=== PATIENT | female | born 1980 | race Caucasian/White ===

== ENCOUNTER → 2017-10-30 10:27 | Outpatient (CLI) | payer OTHER, SELFPAY ==
[2017-10-30 12:32] LABS: Hematocrit 41.1 % (37-47); Hemoglobin 13.6 g/dl (12.0-15.0); Mean Corp Hgb Conc 33.1 g/gl (32-36); Mean Corpuscular Hgb 28.8 pg (27.0-32.0); Mean Corpuscular Volume 87.1 fL (81-99); Mean Platelet Vol. 10.2 fl (6.2-12.0); Platelet Count 248 K/mm3 (150-450); RBC Distribution Width CV 12.8 % (11.6-14.6); RBC Distribution Width SD 41.4 fl (35.1-43.9); Red Blood Count 4.72 M/mm3 (4.2-5.4)
[2017-10-30 12:33] LABS: Scan Indicated on CBC? Y/N NO
[2017-10-30 13:02] LABS: ALB/GLOB Ratio 0.9 RATIO (0.9-2.4); AST(SGOT) 20 U/L (15-37); Alanine Aminotransfer ALT/SGPT 24 U/L (13-56); Albumin, Serum 3.6 g/dL (3.2-5.0); Alkaline Phosphatase 67 U/L (45-117); Anion Gap 6 (5-15); BUN 13 mg/dL (7-18); BUN/Creat Ratio 19.3 RATIO (10-20); Calcium,Total 8.8 mg/dL (8.5-10.1); Chloride 106 mmol/L (98-107); Cholesterol 217 mg/dL (200); Creatinine, Serum 0.67 mg/dL (0.55-1.02); EST Glomerular Filtration Rate 106 mL/min (>60); Est Glom Filt Rate - Afr Amer 128 mL/min (>60); Ferritin 30 ng/mL (8-252); Globulin 3.8 g/dL (2.2-4.2); Glucose 85 mg/dL (74-106); High Density Lipoprotein 45 mg/dL; Iron 46 ug/dL (50-170); Potassium 4.3 mmol/L (3.5-5.1); Protein, Total 7.4 g/dL (6.4-8.2); Sodium Level 139 mmol/L (136-145); Thyroid Stim Hormone (TSH) 1.26 uIU/mL (0.358-3.74); Triglycerides 111 mg/dL; Very Low Density Lipoprotein 22 mg/dL (5-40)
[2017-10-31 09:15] LABS: Vitamin B12 377 pg/mL (211-911); Vitamin D,25 Hydroxy 15.9 ng/mL (19.95-100.01)
== END ==
PROVIDERS: Family Provider Family Medicine; PCP Family Medicine; Visit Provider Family Medicine
DX: R53.83 Other fatigue (principal); E78.5 Hyperlipidemia, unspecified
CPT/HCPCS: 36415; 80053; 80061; 82306; 82607; 82728; 83540; 84443; 85027

== ENCOUNTER 2018-06-26 15:50 | Emergency (ER) | payer OTHER, SELFPAY ==
[2018-06-26 15:51] VITALS: BP 129/81; PULSE 113; RESP 17; TEMP 36.7; O2SAT 98; BMI 37.3
--- NOTE | 2018-06-26 16:39 | ED.DCSUM_ITS ---
- ER Visit Summary Date of Service: 06/26/18 Chief Complaint: beesting to right thigh History of Present Illness: The patient is a 38 F who presents for pain and swelling to the right inner thigh 2 days after a yellow jacket sting. Patient was stung by a yellow jacket on the right inner thigh 2 days ago, and has had progressively worsening redness, swelling and pain to the area. Yesterday she was started on Keflex and Bactrim for concern for possible secondary infection without any improvement. Redness and pain has continued to spread. Patient tried Benadryl but states it makes her too sleepy and she has small children. She is also tried ibuprofen and ice. No shortness of breath, dizziness or lightheadedness, nausea or vomiting, fever or any other associated symptoms other than the swelling. She has no history of DVT. Physical Examination: Patient is afebrile and hemodynamically stable. Well-nourished well-developed sitting in bed in no distress. Lungs are clear to auscultation bilaterally. Examination of the lower extremity shows 2+ DP pulses, no edema or tenderness below the knees. Right medial thigh shows several skin markers marking the margins of the progressing erythema. Patient has a 20 cm ovoid area of erythema with central induration and a central punctate irma consistent with a bee sting site. Sensation motor function are intact all distal extremities. Test Results: [] Emergency Department Course and Treatment: Patient's examination is more consistent with a localized allergic reaction to the yellow jacket sting rather than a secondary cellulitis. Patient was started on a prednisone taper and was advised to use an [id number] nondrowsy antihistamine to help with symptoms. She is going to continue the antibiotics that she was prescribed yesterday. Patient was given return precautions. No signs of anaphylaxis and this does not appear consistent with DVT, as the progression on the medial thigh is appropriate for a localized reaction to a yellow jacket sting and there are no significant exam findings except in the oval region surrounding the sting site. Patient discharged home. Treatment Plan: [] Disposition: [] Impression: localized allergic reaction to bee sting, right thigh This note was generated with [employer] dictation software. It may contain incorrect words, spelling, and punctuation that were not noted in review of the chart prior to signing ED Disposition - Plan for ED Patient: Chief Complaint: Cellulitis Instructions: ED Bite Sting Insect Local Allergic React Prescriptions: Prednisone 10 mg PO UD #33 tab Referrals: Filipe Beal MD [Primary Care Provider] - 3-5 Days if not improving Additional Instructions: Continue taking the antibiotics in case there is secondary infection from the bee sting. Most likely this is a localized reaction to the bee sting, and thus you have been placed on prednisone for this. Take prednisone as directed. You may also want to try ibuprofen, ice, and an [id number] antihistamine such as Claritin or Zyrtec that will not make you drowsy, to help with itching and pain. If you have any worsening of your condition or any new concerning symptoms, please return immediately to the emergency department for another evaluation.
--- NOTE | 2018-06-26 16:39 | ED.VISSUMM ---
- ER Visit Summary Date of Service: 06/26/18 Chief Complaint: [] History of Present Illness: The patient is a 38 F [] Physical Examination: [] Test Results: [] Emergency Department Course and Treatment: [] Treatment Plan: [] Disposition: [] Impression: [] This note was generated with [employer] dictation software. It may contain incorrect words, spelling, and punctuation that were not noted in review of the chart prior to signing ED Disposition - Plan for ED Patient: Chief Complaint: Cellulitis Referrals: Filipe Beal MD [Primary Care Provider] -
[2018-06-26] MEDS: predniSONE 20 MG Tablet 40 MG PO (16:47)
[2018-06-26 17:09] VITALS: RESP 18
== END 2018-06-26 17:10 | disposition home or self-care (01) ==
PROVIDERS: Emergency Provider Emergency Medicine; Family Provider Family Medicine; PCP Family Medicine
DX: T63.441A Toxic effect of venom of bees, accidental (unintentional), initial encounter (principal)
CPT/HCPCS: 99283

== ENCOUNTER → 2019-03-27 14:16 | Outpatient (CLI) | payer OTHER, SELFPAY ==
[2019-03-27 15:49] LABS: ALB/GLOB Ratio 0.9 RATIO (0.9-2.4); AST(SGOT) 16 U/L (15-37); Alanine Aminotransfer ALT/SGPT 23 U/L (13-56); Albumin, Serum 3.5 g/dL (3.2-5.0); Alkaline Phosphatase 74 U/L (45-117); Anion Gap 6 (5-15); BUN 17 mg/dL (7-18); Calcium,Total 8.9 mg/dL (8.5-10.1); Chloride 108 mmol/L (98-107); Creatinine, Serum 0.71 mg/dL (0.55-1.02); EST Glomerular Filtration Rate 99 mL/min (>60); Est Glom Filt Rate - Afr Amer 120 mL/min (>60); Glucose 98 mg/dL (74-106); Potassium 3.8 mmol/L (3.5-5.1); Protein, Total 7.5 g/dL (6.4-8.2); Sodium Level 140 mmol/L (136-145)
== END ==
PROVIDERS: Nurse Practitioner Family; Family Provider Family Medicine; PCP Family Medicine; Visit Provider Family Medicine
DX: R10.11 Right upper quadrant pain (principal)
CPT/HCPCS: 36415; 80053

== ENCOUNTER → 2019-05-15 09:41 | Outpatient (CLI) | payer OTHER, SELFPAY ==
[2019-05-15 10:23] LABS: Absolute Lymphocyte Count 2.35 X10^3/uL (0.83-4.51); Basophil# 0.06 X10^3/uL; Basophil% 0.6 % (0-1); Eosinophil# 0.06 X10^3/uL; Eosinophils% 0.6 % (0-5); Hematocrit 44.1 % (37-47); Hemoglobin 14.1 g/dL (12.0-15.0); Lymphocyte # 2.35 X10^3/ul (4.0); Lymphocyte % 23.4 % (19-41); Mean Corpuscular Hgb 27.4 pg (27.0-32.0); Mean Corpuscular Volume 85.8 fL (81-99); Mean Platelet Vol. 9.5 fl (6.2-12.0); NRBC Flagged by Analyzer 0 % (0-5); Neutrophil # 7.02 X10^3/uL (2.7-7.7); Platelet Count 309 K/mm3 (150-450); RBC Distribution Width CV 12.3 % (11.6-14.6); RBC Distribution Width SD 38.6 fl (35.1-43.9); Red Blood Count 5.14 M/mm3 (4.2-5.4)
[2019-05-15 11:12] LABS: Cholesterol 213 mg/dL (200); Ferritin 52 ng/mL (8-252); High Density Lipoprotein 41 mg/dL; Iron 55 ug/dL (50-170); Iron Binding Capacity,Total 333 ug/dL (250-450); PERCENT IRON SATURATION 16.5 % (15.0-55.0); Thyroid Stim Hormone (TSH) 0.79 uIU/mL (0.358-3.74); Triglycerides 91 mg/dL; Very Low Density Lipoprotein 18 mg/dL (5-40)
[2019-05-16 12:59] LABS: Transferrin 248 mg/dL (200-370)
== END ==
PROVIDERS: Family Provider Family Medicine; PCP Family Medicine; Referring Provider Nurse Practitioner Family; Visit Provider Nurse Practitioner Family
DX: Z00.00 Encounter for general adult medical examination without abnormal findings (principal); R53.83 Other fatigue
CPT/HCPCS: 36415; 80061; 82728; 83540; 83550; 84443; 84466; 85025

== ENCOUNTER 2019-05-20 09:00 | Outpatient (RCR) | payer OTHER, SELFPAY ==
--- NOTE | 2019-05-20 09:10 | BH.SGPN.GN ---
Behaviors/Verbalizations/Mental Status: [] Eye contact is good. Motor activity is appropriate. Appearance is casual. Speech is Appropriate. Mood is anxious. Affect is congruent. Thoughts are linear and logical. No evidence of psychosis. Reviewed daily check in sheet and pt notes 2/5 for suicidal thoughts and 0/5 for intent. Therapist aware CSSR screener completed prior to group and low risk. Client Response/Progress/Benefit: [] Pt participated at times during group discussion. This was pt's first day in the program. Shared that she entered IOP as her mental health symptoms had been decompensation ing the past several weeks. Daily symptoms tracker indicates4/5 for anxiety, panic, and agitation. Also notes 3/5 for hopelessness. Reports daily depression, anxiety, and stress related to family which are impacting her functioning. Hx of decompensation in the past and she wants to get ahead of this before she gets worse. Hx of treatment at [facility] level of care with improvement. Limited progress as this was first day. Group welcomed her to the group and provided support and encouragment. Will continue in IOP to prevent decompensation, increase coping strategies, and improve daily functioning. Narrative Note: []
--- NOTE | 2019-05-20 10:21 | BH.SGPN.GN ---
Behaviors/Verbalizations/Mental Status: [Client alert and oriented, casually dressed and neatly groomed. Eye contact good. Motor activity appropriate. Speech within normal limits. Affect congruent, mood anxious, euthymic. Thoughts linear, logical, no signs of hallucinations or delusions.] Client Response/Progress/Benefit: [Pt receptive to session, provided input and remained an active listener throughout discussion on stress. Able to brainstorm with the group positive and negative aspects of stress on physical and mental health, discussing the impact stress can have on sleep and blood pressure. She participated in identifying current stressors impacting mental health. Pt's current stressors include: ?s work hours, medication management, physical health of herself and her family, parenting responsibilities, her dog?s health, continuing education requirements for her job, finances, and work requirements. Pt appeared to benefit from gaining awareness of own current stressors and learning about the impact stress has on overall wellbeing. Progress noted in improved ability to identify impact of stressors on maintaining her mental health and wellbeing and preventing burnout. Recommended continued IOP tx to improve emotional regulation and stress management skills, improve utilization of healthy coping and positive self-talk, as well as prevent decompensation.] Narrative Note: []
--- NOTE | 2019-05-20 11:17 | BH.SGPN.GN ---
Behaviors/Verbalizations/Mental Status: []Client alert and oriented, casually dressed and groomed. Eye contact good. Motor activity appropriate. Speech within normal limits. Affect congruent, mood anxious and dysthymic. Thoughts linear, logical, no signs of hallucinations or delusions. Client Response/Progress/Benefit: []Pt engaged in session as evidenced by pt listening attentively to others and providing input throughout session. Pt worked with the group to complete the challenge activity and with elicitation able to identify barriers encountered that may also impact managing stress in daily life. Pt engaged in discussion about the 4 A's of managing stress. Pt connected with others about the importance of being able to accept the stressors in life that she cannot change and focus on what is in her control. Pt stated she wants to work on avoiding unnecessary stressors by setting boundaries with others so she doesn't take on too many responsibilities. Benefited from increased awareness of the impact of stress on mental health and increasing repertoire of stress management strategies. Pt to continue in IOP to prevent decompensation, continue use of healthy coping skills and challenge distorted thoughts. Narrative Note: []
--- NOTE | 2019-05-20 11:27 | BH.COMM ---
Communication Note - Communication with Client Communication Note: Met with pt to complete admission paperwork. No significant changes since pre-admission screening. Completed CSSR screener and pt presents as low risk. Reports passive thoughts of or wish to be in past past however denies any active suicidal ideations, plan, intent, or hx of attempts.
--- NOTE | 2019-05-21 09:33 | BH.PSY.EVA_ITS ---
Initial Treatment Plan - Patient Information Visit Information: ADMISSION DATE: EXPECTED LOS: 4-6 weeks - Problems/Symptoms Problem #1:: Depression Symptom:: Sadness, crying, decreased concentration, low energy, fleeting though ts of Problem #2:: Anxiety Symptom:: rumination, intrusive thoughts, feeling jittery
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
--- NOTE | 2019-05-21 10:21 | BH.SGPN.GN ---
Behaviors/Verbalizations/Mental Status: [Client alert and oriented, neatly dressed and appropriately groomed. Eye contact good. Motor activity appropriate. Speech within normal limits. Affect congruent, mood anxious and dysthymic. Thoughts linear, logical, no signs of hallucinations or delusions. ] Client Response/Progress/Benefit: [Client responded well to session, actively listening and providing input throughout despite this being client?s second day in IOP program. Client reported connecting with topic of cognitive distortions and the potential impacts unmanaged negative automatic thoughts can have on managing mental health symptoms and daily functioning. She expressed that our thoughts can prevent us from seeing different ways to look at something. Client did well to work with the group on defining the various types of cognitive distortions and ways they have impacted mental health in the past. Client shared a personal example of mental filter, indicating ?this is like calling my Aunt and focusing on symptoms rather than my progress?. She reported connecting with distortions of personalization, minimizing and catastrophizing, as well as all or nothing thinking. Appeared to benefit from increasing awareness of cognitive distortions and how they can impact emotions and behaviors. She is making progress in her ability to more openly discuss within the group and connect materials to her own experiences. Client to continue IOP to decrease anxiety and depression, continue to increase insight and mental health coping skill repetiore, as well as prevent decompensation. ] Narrative Note: []
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
--- NOTE | 2019-05-23 09:00 | BH.SGPN.GN ---
Behaviors/Verbalizations/Mental Status: [] Eye contact is good. Motor activity is appropriate. Appearance is casual. Speech is Appropriate. Mood is euthymic. Affect is full. Thoughts are linear and logical. No evidence of psychosis. Reviewed daily check in sheet and no reports of suicidal ideations or intent. Client Response/Progress/Benefit: [] Pt was an active participant in group discussion. Emotion for today is calm. Daily symptom tracker indicates 3/5 for anxiety. Shared some mental health wins since last session. Went on walk with and she was happy that he was engaged with her and asking questions about treatment. Progress noted per pt report. Reports feeling better and more calm. Less depressed and more hopeful. Benefited from group support, encouragement, and feedback. Will continue in IOP to prevent decompensation, maintain gains, and increase coping strategies. Narrative Note: []
--- NOTE | 2019-05-23 10:16 | BH.SGPN.GN ---
Behaviors/Verbalizations/Mental Status: [Client alert and oriented, casually dressed and appropriate grooming. Eye contact good. Motor activity appropriate. Speech within normal limits. Affect congruent, mood euthymic. Thoughts linear, logical, no signs of hallucinations or delusions] Client Response/Progress/Benefit: [Pt participated in group discussion and worksheet activity. Pt connected with the group topic of Crisis and indicated that ?we can choose to dwell on crisis, or we can choose to change our way of thinking?. Pt worked together with the group to define a crisis and discuss examples of crisis situations. Pt described a house fire as an example of potential crisis. Connected with discussion on how small setbacks or annoyances can develop into a crisis if coping skills are unhealthy. She shared that warning signs are ?things that tell you ?stop, I need some help??. Group identified warning signs for crisis which included; increased sleep, irritability, decreased appetite, and suicidal thoughts. Pt completed the personal warning signs worksheet and identified her crisis warning signs include; increased or decreased sleep, jitteriness, and decreased concentration. Benefited from group by increasing awareness of crisis and personal warning signs. Progress noted as pt displaying increased ability to see how personal coping strategies may have impacted mental health crisis likelihood in past. Will continue IOP to promote change behaviors, increase healthy emotion regulation skills, and prevent decompensation.?] Narrative Note: []
--- NOTE | 2019-05-23 11:15 | BH.SGPN.GN ---
Behaviors/Verbalizations/Mental Status: []]Client alert and oriented, casually dressed and groomed. Eye contact good. Motor activity appropriate. Speech within normal limits. Affect congruent, mood euthymic. Thoughts linear, logical, no signs of hallucinations or delusions. Client Response/Progress/Benefit: []Client responded well to session as evidenced by client listening attentively to others and sharing when prompted. Client identified her warning signs for crisis and gained further awareness of his earliest warning signs. Client recognized that awareness of these warning signs can prevent further crisis and help client utilize healthy coping skills to break the cycle. Client created a crisis action plan to help client better manage earliest warning signs for crisis. Client?s plan included challenging negative thoughts, positive self-talk, setting goals, and reaching out to supports. Client appeared to benefit from creating a crisis action plan and increasing his self-awareness. Client to continue IOP level of care to decrease depression, increase use of healthy coping, and prevent decompensation. Narrative Note: []
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
--- NOTE | 2019-05-26 09:02 | BH.SGPN.GN ---
Behaviors/Verbalizations/Mental Status: [Eye contact is good. Motor activity is appropriate. Appearance is casual and grooming appropriate. Speech is WNL. Mood is dysthymic, anxious. Affect is congruent. Thoughts are linear and logical. No evidence of psychosis. Reviewed daily check in sheet, pt reports suicidal ideation at rate of 2/5 which is consistent with baseline, denies plan or intent. Scheduled for individual session following group and SI will be further assessed.] Client Response/Progress/Benefit: [Pt was an active participant in group discussion, providing input and feedback throughout. Emotion for today is ?kind of sad/down?. Reports that she believes this might be due to her son starting kindergarten and worrying about his ability to adjust, as well as a potential ADHD diagnosis. Pt did well to apply concepts of radical acceptance and self-coaching when discussing this stressor, indicating that ?I just trying to remind myself that this is out of my control and that it will be okay?. Pt identified current mental health wins. Wins include using avoidance in healthy ways to limit time spent on an ADHD support group online. Pt noted that avoidance has helped as this group can become overwhelming and too negative at times. Additional win is that pt reports being able to better identify when using cognitive distortions and catch herself and reframe during moments of catastrophizing or jumping to conclusions. Benefited from group support, encouragement, and feedback, as well as identifying small mental health wins. Pt making progress in ability to generalize treatment materials. Will continue in IOP to prevent decompensation, improve coping strategies for anxiety, and increase functioning.] Narrative Note: []
--- NOTE | 2019-05-26 10:14 | BH.SGPN.GN ---
Behaviors/Verbalizations/Mental Status: []Client alert and oriented. Casual in dress and appropriate grooming. Eye contact good. Motor activity appropriate. Speech within normal limits. Affect congruent, mood euthymic. Thoughts linear, logical, no signs of hallucinations or delusions. Client Response/Progress/Benefit: []Pt was an active participant in group discussion. Processed quote of the day with peers. Group discussed the MH benefits to having open and clear communication with support and providers. Pt stated relationships can improve if have effective communication because know what other person is feeling or needs. Group also discussed the barriers that tend to impact clear and open communication which include: depression, anxiety, fear, not trusting others, feeling like others don't understand you, shutting down, and unmanaged emotions. Pt reported there are times in which she has thought she communicated effectively, but the other person misinterprets her message. Pt was attentive during psycho-education on communication styles (aggressive, passive, passive-aggressive, and assertive). Also provided input on the pros and cons to each communication style. Pt to continue IOP level of care to continue use of health coping, identify and challenge distorted thoughts and prevent decompensation. Narrative Note: []
--- NOTE | 2019-05-26 11:16 | BH.SGPN.GN ---
Behaviors/Verbalizations/Mental Status: []Client alert and oriented, casually dressed and groomed. Eye contact good. Motor activity appropriate. Speech within normal limits. Affect congruent, mood euthymic. Thoughts linear, logical, no signs of hallucinations or delusions. Client Response/Progress/Benefit: []Client responded well to session, active participant. Engaged in ongoing psychoeducation on the different communication styles. Client able to gain insight into her communication style and client reported belief she is passive and passive aggressive. Client reported she was raised to put others first and she has always been a people pleaser. Client stated she becomes passive aggressive when she feels angry or too stressed.? Client reported these communication styles have negatively impacted her mental health and relationships. Client shared being passive and passive aggressive only reinforces her symptoms and ?things never get resolved.? Participated in group activity and discussion. Able to use the activity to reflect on ways to improve communication. Attentive during psychoeducation on D.E.A.R M.A.N and reported she wants to work on asserting her needs directly and clearly.. Appeared to benefit from increasing self-awareness and practicing in the moment coping skills. Will continue IOP to prevent decompensation and increase healthy coping skills.?
--- NOTE | 2019-05-26 14:03 | BH.MDN_ITS ---
Multi-Disciplinary Note - Note 30-min Individual Time Started:: 12:16 Date: 05/26/19 Purpose of session/treatment goals addressed:: Purpose of this session was to establish rapport with pt, gather additional information regarding pt current functioning, symptoms, and stressors impacting mental health. Other topics including development of treatment goals and progress since beginning the program. Eye Contact:: Good Motor Activity:: Appropriate Appearance:: Casual Speech:: Appropriate Mood:: Anxious, Dysthymic Affect:: Congruent Thoughts:: Linear, Logical, No evidence of hallucinations/delusions noted Staff Interventions:: Therapist asked open ended and furthering questions to gather additional information regarding pt's symptoms, current stressors, as well as events leading to IOP admission. Worked with client to explore treatment goals to address in PHP. Therapist used strengths perspective to build rapport and help pt identify personal positives and resilience factors. Therapist used empathic responses to provide emotional validation. Applied [place] techniques to explore coping strategies that have helped in the past and establish IOP treatment goals. Client Response:: Pt open to meeting with this therapist and engaged throughout session. She reports that her first week in IOP has gone well and she is beginning to see small improvements in her mood as a result. Reports that she has been actively working to apply the materials discussed and skills learned in group, specifically thought challenging, checking-in with herself, and avoiding unnecessary stressors. Pt went on to describe a decrease in overall intensity of anxiety as a result, noting that her symptoms are ?a little bit better than before?. Pt has a hx of Major depressive disorder with a previous hospitalization in 2012 following the of her son for SI/HI. Pt reports struggling with depression at the time and was unable to take Zoloft as prescribed due to nausea throughout her . Indicated that when she began having intrusive thoughts of locking her children and herself in the family car while it was running in the garage, she immediately sought help and was hospitalized for 4 days at [facility]. She noted that she has not had any HI since and has been taking Zoloft as prescribed up until most recently. Pt notes passive SI without plan or intent and that she has recently been struggling to remain consistent with medication due to forgetfulness. Pt discussed the events that led to her admission to IOP tx and indicated, ?I wish I had known more of my warning signs because I think I would have been able to better see this coming?. Shared that she could not identify anything specific that had triggered increases in anxiety and racing thoughts. However, indicated her sx had become more severe after returning from vacation on 04/27/19. Denies any stressors during vacation. Pt identified racing thoughts and fears about her son starting kindergarten and being assessed for ADHD. Additionally, pt endorses increased heart rate, hot flashes, and gastrointestinal issues when anxious, as well as crying spells, overwhelming worry, and hopelessness. Notes symptoms are most severe in the morning and evenings when she is alone, but that they reduce while tending to her children and daily routine. Pt?s works four 10 hour days and is often not home until late in the evening which can be a stressor. She discussed some treatment plan goals which include learning about thought challenging and learning techniques to better manage racing thoughts, as well as increasing her awareness of coping skills and warning signs to decompensation. Risks/Concerns:: Pt scores for SI on daily symptom tracker were rated as 2/5. This is consistent with pt baseline and she denies any active SI, plan, or intent at time of session. Pt reports becoming fearful when have thoughts of as she does not want to and reports that her children are major motivations to live. Denies any plan or intent. Future oriented and reports plans to spend time with her children and read tonight. Progress Toward Goals/Plan:: Limited progress noted as pt first week in IOP program. She reports decreased intensity, frequency, and severity of racing thoughts causing anxiety. Pt attributes this to increased awareness of cognitive distortions and being able to remind herself that ?thoughts are thoughts, not facts?. Denies SI/HI. Pt reports willingness to begin a thought log as homework to identify any patterns. Additionally willing to begin challenging herself to do one ?self-care? activity daily. Plan is to remain in IOP level of care to improve anxiety management, increase insight and understanding of personal mental health sx, as well as stabilize mood. Time Stopped:: 12:56
--- NOTE | 2019-05-26 15:51 | BH.MTP ---
Master Treatment Plan - Patient Information Program Physician:: Dr. Jennifer Christy Primary Therapist:: CAROLINE You - Psychiatric Diagnoses Psychiatric Diagnoses:: Major depressive disorder recurrent severe without psychosis F33.2, generalized anxiety disorder Diagnosis Code(s):: F33.2 - Estimated LOS Estimated LOS (in weeks):: 6 Problem/Goal #1 - Problem/Goal #1 Stated Goal:: Client will decrease depressive symptoms, isolation, and passive suicidal ideations due to Major Depressive Disorder. Description of Barriers: Pt reports her works in [place] which often leaves her as the primary care provider for their 2 children. Pt reports feeling obligated to get her children involved in as many activities as possible which places additional responsibility on her, is time consuming, and further exacerbates her mental health symptoms of anxiety. Additionally, client reports not having time to reach out to support or feeling her supports are too busy, reports isolative behaviors, and low self-esteem. Reports feeling guilty about needing to ask for help. Functional Impact: Pt is a 38-year-old female with a history of depression and anxiety. Pt reports worsening symptoms in the 3-4 weeks prior to [facility] admission. Pt reports symptoms increased after returning from a vacation with her family on April 27, 2019. At time of admission to [facility], pt endorsing increased depression, worthlessness, hopelessness, crying spells, lack of motivations, anhedonia, low energy, fatigue, decreased appetite, poor concentration, forgetfulness, and passive thoughts of . Pt additionally reports having fleeting suicidal ideation without plan or intent. Denies active SI, plan, and intent. Pt additionally reports intrusive thoughts, rumination, and daily panic attacks. Panic is controllable if pt calls a support person. Pt?s works in [place] and is gone a majority of the day, which leaves pt as primary caregiver for their 2 children. At admission, pt?s symptoms were continuing to interfere with her social, occupational, and familial functioning. Goal Relevant Strengths/Supports: Client presents as a kind, empathic, and motivated to improve her mental health. Client reports being close with her family and uses them as supports for managing sx of anxiety. Client is currently not working during the week which is helping client focus more on her mental health. - Objectives Objective #1 Stated Objective: Client will learn and utilize 2-3 healthy coping strategies to manage depressive symptoms. Interventions: Therapist will assist client in learning internal coping strategies to manage depressive symptoms, along with helping client identify triggers. Discharge Criteria: Client will have achieved this goal when can verbalize and has practiced at least 2 healthy coping strategies. Target Date: 07/01/19 Review Date: 06/17/19 Objective #2 Stated Objective: Client will identify 2-3 depressive thinking patterns and be able to challenge and replace negative thoughts. Interventions: Therapist will assist client in identifying depressive thinking patterns and provide client with resources to help teach client strategies in defeating negative thoughts. Discharge Criteria: Client will have met this objective when can identify at least two depressive thinking patterns and be able to defeat depressive and suicidal thoughts. Problem/Goal #2 - Problem/Goal #2 Stated Goal:: Client will decrease ruminating thoughts which cause anxiety. Description of Barriers: Pt reports her works in [place] which often leaves her as the primary care provider for their 2 children. Pt reports feeling obligated to get her children involved in as many activities as possible which places additional responsibility on her, is time consuming, and further exacerbates her mental health symptoms of anxiety. Additionally, client reports not having time to reach out to support or feeling her supports are too busy, reports isolative behaviors, and low self-esteem. Reports feeling guilty about needing to ask for help. Functional Impact: Pt is a 38-year-old female with a history of depression and anxiety. Pt reports worsening symptoms in the 3-4 weeks prior to [facility] admission. Pt reports symptoms increased after returning from a vacation with her family on April 27, 2019. At time of admission to [facility], pt endorsing increased depression, worthlessness, hopelessness, crying spells, lack of motivations, anhedonia, low energy, fatigue, decreased appetite, poor concentration, forgetfulness, and passive thoughts of . Pt additionally reports having fleeting suicidal ideation without plan or intent. Denies active SI, plan, and intent. Pt additionally reports intrusive thoughts, rumination, and daily panic attacks. Panic is controllable if pt calls a support person. Pt?s works in [place] and is gone a majority of the day, which leaves pt as primary caregiver for their 2 children. At admission, pt?s symptoms were continuing to interfere with her social, occupational, and familial functioning. Goal Relevant Strengths/Supports: Client presents as a kind, empathic, and motivated to improve her mental health. Client reports being close with her family and uses them as supports for managing sx of anxiety. Client is currently not working during the week which is helping client focus more on her mental health. - Objectives Objective #2 Stated Objective: Client will identify 2-3 triggers and 2-3 new ways to navigate stressful situations rather than becoming irrational and losing temper. Interventions: Therapist will use motivational interviewing, and help client make changes in life to encourage more regulated and rational behavior, ways to manage emotions in stressful situations, and feel more confident in self. Discharge Criteria: Client will have met this goal when he is able to describe less than 2 irrational reactions in a week, and at least 2 new ways to handle these stressful situations. Target Date: 07/01/19 Review Date: 06/17/19 Objective #1 Stated Objective: Client will identify 2-3 anxiety triggers and 2 coping skills to use when feeling anxious. Interventions: Therapist will encourage client to use self-awareness strategies and assist client in developing coping strategies to manage ruminating thoughts. Discharge Criteria: Client will have met this goal when can identify at least 2 triggers and 2 ways to cope with anxieties. Target Date: 07/01/19 Review Date: 06/17/19
--- NOTE | 2019-05-28 09:02 | BH.SGPN.GN ---
Behaviors/Verbalizations/Mental Status: []Client alert and oriented, neatly dressed and groomed. Eye contact good. Motor activity appropriate. Speech within normal limits. Affect congruent, mood euthymic. Thoughts linear, logical, no signs of hallucinations or delusions. Reviewed client?s symptom tracker, no risk for suicidal ideation, plan, or intent as of 05/28/19 as client's scores were at her baseline. Client Response/Progress/Benefit: [] Client responded well to session, providing supportive feedback to peers. Client reports feeling ?happy? today. Client reported this morning she used positive self-talk to manage her anxiety. Client stated she told herself ?I?m in control of my anxiety? this morning which helped her calm down. Client identified another mental health win today which was starting to feel like doing things again. Client stated she plans to go grocery shopping today which is something she has not done for a while. Client reported her stressor today is her mother is putting some pressure on client to change her plans this weekend for client?s son?s birthday green party. Client recognized she can practice being assertive with her mother and setting boundaries. Appeared to benefit from reflecting on generalization of healthy coping. Progress noted in client?s ability to cope with anxiety this morning. Will continue IOP tx to reduce intensity and duration of symptoms to improve daily functioning.?
--- NOTE | 2019-05-28 10:07 | BH.SGPN.GN ---
Behaviors/Verbalizations/Mental Status: [Client alert and oriented, casually dressed and appropriately groomed. Eye contact good. Motor activity appropriate. Speech is WNL. Affect congruent, mood dysthymic. Thoughts linear, logical, no signs of hallucinations or delusions. ] Client Response/Progress/Benefit: [Client responded well to session, actively engaged throughout discussion. She appeared to connect with the topic of personal pitfalls and how they can prevent mental health progress. Client shared ?sometimes we?re on the wrong path and don?t realize we have to get on the right path until after a downward spiral?. Client connected with examples of a personal pitfalls identified by group and discussed the first thing to do to combat pitfalls is self-awareness. Client participated in the group activity and did well to challenge herself not to give up despite several setbacks experienced by the group. Client provided encouraging statements and did well to work with the group to brainstorm new approaches to setbacks as they encountered them. Progress noted in increased ability to apply in the moment self-regulation skills and use assertive communication. Client appeared to benefit from increasing self-awareness and applying in the moment coping. Client to continue IOP to prevent decompensation, continue to promote healthy change behaviors, decrease depression, as well as increase stress management skills.] Narrative Note: []
--- NOTE | 2019-05-28 11:15 | BH.SGPN.GN ---
Behaviors/Verbalizations/Mental Status: []Client alert and oriented, casually dressed and groomed. Eye contact good. Motor activity appropriate. Speech within normal limits. Affect congruent, mood euthymic and agitated at times. Thoughts linear, logical, no signs of hallucinations or delusions. Client Response/Progress/Benefit: []Pt receptive of session, engaged throughout AEB pt providing positive input to group discussion. Pt completed a worksheet where she identified personal pitfalls impacting mental health progress. Identified pitfalls as: not saying no, taking on too many responsibilities, increased anger which leads to yelling at others and guilt. Pt identified she wants to focus on the pitfall of taking on too many responsibilities. Pt stated she will work on preventing this pitfall by giving herself time before saying yes to others. Pt reported this will help because it gives her time to look at her schedule instead of always saying yes to everyone. Benefited from identifying personal pitfalls and strategies to overcome these pitfalls. Pt has made progress in IOP with increasing self-awareness and making daily efforts to apply skills outside treatment environment. Recommended continue tx to promote change behaviors, increase use of healthy coping skills, decrease depression, and prevent decompensation. Narrative Note: []
--- NOTE | 2019-05-30 09:06 | BH.SGPN.GN ---
Behaviors/Verbalizations/Mental Status: [Client alert and oriented, casual and neat appearance. Eye contact good. Motor activity appropriate. Speech within normal limits. Affect congruent, mood euthymic, fatigued. Thoughts linear, logical, no signs of hallucinations or delusions. Reviewed client?s symptom tracker, no risk for suicidal ideation, plan, or intent as of 05/30/19.] Client Response/Progress/Benefit: [Client responded well to session, providing supportive statements to peers and receptive of feedback. Client reports feeling ?tired? today as she had worked a 12 hour shift yesterday. Client shared ?it was stressful and busy the whole time?, indicating that this has left her feeling drained. Client identified her mental health wins today which included making it through work positively, noting ?I told myself ?take it one step at a time??. Additionally, reports using skills of deep breathing, taking a step back to calm herself, and asking her boss for help. Client stated her stressor today is that she was up late helping her daughter with spelling homework which limited the amount of sleep she was able to get. Client appeared to benefit from reflecting on her generalization of coping skills to manage occupational stressors and decrease mental health symptoms. Progress noted as client reports improved ability to advocate for herself and use of coping skills. Will continue IOP tx to promote gains and reduce the intensity of symptoms.?] Narrative Note: []
--- NOTE | 2019-05-30 10:10 | BH.SGPN.GN ---
Behaviors/Verbalizations/Mental Status: []Client alert and oriented, neatly dressed and groomed. Eye contact good. Motor activity appropriate. Speech within normal limits. Affect congruent, mood euthymic, anxious. Thoughts linear, logical, no signs of hallucinations or delusions. Client Response/Progress/Benefit: []Client responded well to session, actively contributing to discussion. Client appeared to connect with the topic of fear of failure. Client reported she has viewed setbacks in life as all or nothing before, which caused client to shut down. Client reported failure is about perception and unrealistic expectations of oneself or of success can ?set us for failure.? Client shared it is possible to view failures as opportunities for growth. Group identified the impacts of fear of failure on mental health which included: learned helplessness, not trying, depending too much on others, avoidance, self-sabotage, and increased mental health symptoms. Client reported fear of failure can keep people from positive opportunities and improved mental health. Client seemed to benefit from increased awareness of how fear of failure can impact mental health. Client to continue IOP level of care to promote application of coping skills and further reduce intensity of symptoms.
--- NOTE | 2019-05-30 11:15 | BH.SGPN.GN ---
Behaviors/Verbalizations/Mental Status: []Client alert and oriented, casually dressed and groomed. Eye contact good. Motor activity appropriate. Speech within normal limits. Affect congruent, mood euthymic. Thoughts linear, logical, no signs of hallucinations or delusions. Client Response/Progress/Benefit: []Client engaged in session as evidenced by pt providing input throughout discussion and listening attentively to others. Client completed fear of failure worksheet and shared with group. Client shared fear of failure is keeping client from applying skills learned in mental health treatment. Client identified barriers to overcoming fear of failure which include: worry will be too happy that won't be able to maintain progress; not using coping skills; what if thinking; difficulty taking breaks and resting. Client identified things that she can do to overcome fear of failure such as: prioritizing me time; consistently attend counseling appointments; reframe negative thoughts; remind self she has been able to overcome difficult things previously; tell herself recovery takes time; take medications everyday. Benefited from identifying the impact that fear of failure has had on her life and developing strategies to overcome fear of failure. Will continue IOP to prevent decompensation, identify and challenge distorted thoughts and improve coping skills. Narrative Note: []
--- NOTE | 2019-06-03 09:10 | BH.SGPN.GN ---
Behaviors/Verbalizations/Mental Status: [] Eye contact is good. Motor activity is appropriate. Appearance is neat. Speech is Appropriate. Mood is depressed. Affect is flat. Thoughts are linear and logical. No evidence of psychosis. Reviewed daily check in sheet and no reports of suicidal ideations or intent. Client Response/Progress/Benefit: [] Pt was an active participant in group discussion. Emotion for today is tired however content. States my son had a meltdown this morning and I managed it. Notes being more calm and better able to handle stressors. Reviewed several examples of increase mood management. Less anxious when is not around. Progress noted. Benefited from group support, encouragement, and feedback. Will continue in IOP to maintain gains, prevent decompensation, and stabilize emotions. Narrative Note: []
--- NOTE | 2019-06-03 10:10 | BH.SGPN.GN ---
Behaviors/Verbalizations/Mental Status: []Client alert and oriented, disheveled in appearance. Eye contact good. Motor activity appropriate. Speech within normal limits. Affect congruent, mood euthymic. Thoughts linear, logical, no signs of hallucinations or delusions. Client Response/Progress/Benefit: []Client active participant during group discussion AEB pt providing input throughout group session and listened attentively to others. Client reported if we don't communicate what we need from supports they won't know how to support us. Group identified benefits of social support as gaining a different perspective, provide validation, help recognize warning signs, provide additional insight, and help us see personal strengths. Client gave example of how her family members have helped her with reminding client of past positive choices she has made. Client was engaged during the group activity and showed increased engagement as shown by client communicating with peers and cooperating throughout. Client reported she recognizes the importance of having balance of having both internal and external supports. Appeared to benefit from gaining awareness of barriers that keep people from seeking social support. Client to continue IOP to continue use of healthy coping skills, identify and challenge negative thoughts, and prevent decompensation. Narrative Note: []
--- NOTE | 2019-06-03 11:13 | BH.SGPN.GN ---
Behaviors/Verbalizations/Mental Status: []Client alert and oriented, neatly dressed and groomed. Eye contact good. Motor activity appropriate. Speech within normal limits. Affect congruent, mood euthymic. Thoughts linear, logical, no signs of hallucinations or delusions. Client Response/Progress/Benefit: []Client responded well to session, positive contributions and receptive to feedback. Client helped the group discuss and identify different social supports as well as the benefits of different supports. The group identified examples of personal, self-help, professional, spiritual, and co-worker social supports. Group identified benefits of each type of social support. Client reported she wants to increase her self-help social support to gain more resources and peer support. Client identified barriers that could prevent client from improving this support such as: fear of the unknown, lack of time, and feeling overwhelmed. Client reported she plans to look up events on the [employer] flyer and call herself out when ?I start making excuses?. Client appeared to benefit from increasing understanding of different types of social support and identifying ways she can improve. Progress noted as shown by client?s generalizing of coping skills and report of reduced intensity of symptoms. Will continue IOP to promote gains and further improve mood stability.?
--- NOTE | 2019-06-04 09:10 | BH.SGPN.GN ---
Behaviors/Verbalizations/Mental Status: [] Eye contact is good. Motor activity is appropriate. Appearance is casual. Speech is Appropriate. Mood is euthymic. Affect is full. Thoughts are linear and logical. No evidence of psychosis. Reviewed daily check in sheet and no reports of suicidal ideations or intent. Client Response/Progress/Benefit: [] Pt was an active participant in group discussion. Emotion for today is peace. Shared that she feels her emotions are more manageable. She went over several examples in the past week in which she managed effectively. Notes in the past she would have ruminated, stressed out, and her MH would have decompensated during those events. Increased self-care which she believes will also positively impact her mental wellness. Processed with the group a recent decision which she has been struggling with. Group provided feedback, reassurance, and support which was beneficial for pt. Will continue in IOP to prevent decompensation, improve functioning, and increase coping skills. Narrative Note: []
--- NOTE | 2019-06-04 11:07 | PCM.BH.PN_ITS ---
Progress Note Progress Note: ] History of Present Illness/Interim History: [Patient is a 38-year-old female who is seen in follow-up at the [facility] behavioral health IOP program. I last saw the patient 2 weeks ago for treatment of depression and anxiety. Denise states that she has tolerated weaning the Zol oft from 200 mg slowly to 100 mg for the past week well. She has no symptoms of withdrawal or other. She also has tolerated starting the Lexapro 10 mg well. She has no complaints about taking this medication. She states that her mood is much better and she is much less anxious than before.] Her appetite has improved and she has not had any panic attacks for over a month now. Of interest the diarrhea that started when she increased her Zoloft dose has stopped since we decreased the Zoloft. She has no more diarrhea or loose stools. She denies having any thoughts about . She denies any fleeting suicidal ideation. No active suicidal ideation and no plan. She continues to have some stress with her children but she feels that she is learning skills here in the IOP program that enable her to handle her stress better. Current Psychiatric Medications: [] Zoloft 100 mg daily for the past week (weaning from 200 mg)., Lexapro 10 mg p.o. daily (for past 2 weeks)] Mental Status Examination: [] Patient is a 38-year-old female who is normal for stated age. She is casually dressed and groomed with good hygiene. She is cooperative during the interview and has no psychomotor agitation or retardation. Speech is normal rate and rhythm with no pressure. Mood is depressed but much less depressed than before. Affect is euthymic this morning during the interview. Thought process is goal-directed and organized. Thought content: No evidence of suicidal or homicidal ideation. No evidence of hallucinations or delusions. No thoughts of . Concentration is much improved. Judgment is intact. Insight is good. Impulsivity is low. Diagnoses: [] [place] I: [Major depressive disorder recurrent severe without psychosis, generalized anxiety disorder] [place] II: [Negative] [place] III: [] Plan: [] Patient will continue the IOP program as she hopefully will continue to benefit from the structure, education, group therapy, and individual therapy and hopefully this will prevent a worsening of her symptoms. She is able to state that she feels quite safe and if she ever does not feel safe she will contact the IOP program or go to the emergency room. We will continue weaning her off the Zoloft and continuing to take the Lexapro. The risks options possible complications and side effects of Zoloft and Lexapro were discussed with the patient and she understands and accepts these. If she has any difficulty during the weaning off the Zoloft she will let me know. She will decrease her Zoloft from 100 mg to 50 mg p.o. daily for 1 week and then she will stop the Zoloft. We will increase the Lexapro to 20 mg p.o. daily. She will follow-up in 2 weeks to see me here in the IOP.
--- NOTE | 2019-06-04 12:03 | BH.NOTE ---
BH: Inpatient Note - Notes Behavioral Health Inpatient Note: Per written order from Dr. Hernandez, the following prescription was called into [facility] pharmacy in [place], [place]: escitalopram 20mg PO daily #30, NO refills Mya Sandhu, MSN, RN
--- NOTE | 2019-06-05 08:56 | BH.MDN ---
Multi-Disciplinary Note - Note 45-min Individual Time Started:: 12:11 Date: 06/05/19 Purpose of session/treatment goals addressed:: Purpose of this session was to assess current symptoms, stressors, and progress in IOP. Another purpose was to introduce behavior activation and identify small goals in for three areas of self-care. Eye Contact:: Good Motor Activity:: Appropriate Appearance:: Casual Speech:: Appropriate Mood:: Euthymic Affect:: Full, Congruent Thoughts:: Linear, Logical, No evidence of hallucinations/delusions noted Staff Interventions:: Therapist asked open-ended and furthering questions to gather information regarding pt current sx, stressors, and treatment goal progress. Used empathic responses and commended pt progress in applying skills learned. Utilized MO techniques to elicit change behaviors and develop small behavior activation goals. Provided education on maintenance cycles and behavior activation. Client Response:: Pt reports that she feels she is making progress in her ability to manage symptoms of anxiety and depression, specifically in the workplace. Pt discussed ?I am happy with the path that I?m traveling on? and shared she has been practicing using positive self-talk, taking breaks at work to prevent feeling overwhelmed, and has been doing well ask for help when needed. Pt described noticing that by working on her mental health she has seen improvements in her children?s behaviors as well. She indicated an increased ability to calm her son when he is upset by taking a deep breath and speaking to him calmly rather than getting mad and yelling. Pt additionally working on her goal of being more physically active by walking in the park. Pt discussed that although she has seen improvements with her mental health, she is still struggling to set aside time for self-care. Often spends most of her time on activities for her children. Insight that not taking time for herself could lead to burnout and maintaining her mental health symptoms. Discussed importance of opposite action and reviewed behavior activation strategies to improve self-care. Pt identified three small goals in self-care areas of fun/relaxation, physical health, and emotional health. Shared she wants to spend at least 10 minutes each day on something she finds fun/relaxing and is going to create a a list of ideas when not knowing what to do. Additional goals of doing [facility] mental health ?check-in?s? and creating a weekly meal plan to improve overall physical health. Risks/Concerns:: No risks or concerns reported. Denies active SI, plan, or intent as of 06/05/19 Progress Toward Goals/Plan:: Progress noted per pt report. Indicates increased ability to manage stress at work. Decreased anxiety and depression, though reports ongoing difficulties prioritizing self-care which continues to impact her daily functioning in. 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 Pt is beginning to utilize skills, specifically self-talk and thought challenging. Will continue in IOP to prevent decompensation, promote use of supports, and increase strategies to manage emotions and create personal balance. Time Stopped:: 12:51
--- NOTE | 2019-06-05 11:13 | BH.SGPN.GN ---
Behaviors/Verbalizations/Mental Status: []Client alert and oriented, casual in appearance. Eye contact good. Motor activity appropriate. Speech within normal limits. Affect congruent, mood euthymic. Thoughts linear, logical, no signs of hallucinations or delusions. Client Response/Progress/Benefit: []Pt active participant AEB pt providing input during discussion, however pt did appear to listen attentively to peers. Pt appeared to connect with the different relaxation skills discussed. Pt completed worksheet identifying what relaxation skills currently use to manage anxiety and identified what skills she would be willing to try to help manage anxious symptoms. Pt identified she is willing to try the following relaxation skills: listen to nature sounds, spend more time in nature engaging senses, meditation, yoga, and progressive muscle relaxation. Pt seemed to benefit from increased awareness of healthy skills to manage anxious symptoms and identifying skills willing to practice outside treatment environment. Pt to continue IOP level of care to maintain gains, continue use of healthy coping skills, and prevent decompensation. Narrative Note: []
--- NOTE | 2019-06-09 09:10 | BH.SGPN.GN ---
Behaviors/Verbalizations/Mental Status: [] Eye contact is good. Motor activity is appropriate. Appearance is casual. Speech is Appropriate. Mood is anxious. Affect is congruent. Thoughts are linear and logical. No evidence of psychosis. Reviewed daily check in sheet and no reports of suicidal ideations or intent. Client Response/Progress/Benefit: [] Pt was an active participant in group discussion. Emotion for today is annoyed. Shared with group mild stressors with daughter over the weekend. Notes this weekend was positive. Spent time with support and is slowly increasing her self-care. She actually completed a list of several self-care possibilities to use when she has some free time. Progress noted. Benefited from group support, encouragement, and feedback. Will continue in IOP to maintain gains, prevent decompensation, and increase healthy coping. Narrative Note: []
--- NOTE | 2019-06-09 10:16 | BH.SGPN.GN ---
Behaviors/Verbalizations/Mental Status: []Client alert and oriented, casually dressed and groomed. Eye contact good. Motor activity appropriate. Speech within normal limits. Affect congruent, mood euthymic. Thoughts linear, logical, no signs of hallucinations or delusions. Client Response/Progress/Benefit: []Client was an active participant in group activity and provided positive input during discussion. Client connected with the group quote and shared ?you have to be proud of what you?ve already accomplished, don?t forget that.? Group worked together to define goals and identify the benefits of developing goals which included; moving forward in life, increasing self-esteem, gives purpose in life, sense of accomplishment, and increasing determination. Group also identified barriers to setting and accomplishing goals which include; fear of failure, wanting instant results, unrealistic expectations, distorted thoughts, lack of motivation, and apathy. Client reported she has struggled with all or nothing thinking about her goals before which has caused client to minimize progress. Attentive during education on developing SMART goals. Benefited from increase awareness of goal-setting methods. Will continue in IOP to promote gains and further reduce depression and anxiety symptoms.
--- NOTE | 2019-06-09 11:15 | BH.SGPN.GN ---
Behaviors/Verbalizations/Mental Status: []Client alert and oriented, casually dressed and neatly groomed. Eye contact good. Motor activity appropriate. Speech within normal limits. Affect congruent, mood euthymic. Thoughts linear, logical, no signs of hallucinations or delusions. Client Response/Progress/Benefit: []Pt attentive throughout, actively contributing thoughts to discussion.Taking notes throughout and nodding as fellow participants reflected on challenge activity. Engaged in creating own mental health SMART goal and seemed to benefit from developing ways to overcome potential barriers to reaching this goal. Pt identified goal is to recite two affirmations a day in the evening for one week. Pt reported this goal will benefit her by improving self-esteem and increasing self-confidence. Pt identified potential barriers to accomplishing goal to include: forgetting, excuses, and being lazy. Pt reported she will overcome identified barriers by completing goal same time everyday, self-talk, reminding self of benefits of completing goal, and identifying consequences of not completing the goal. Seemed to benefit from identifying a SMART goal and coming up with strategies to overcome potential barriers. Pt to continue IOP to continue use of healthy coping skills, identify and challenge distorted thoughts, and prevent decompensation. Narrative Note: []
--- NOTE | 2019-06-10 09:00 | BH.SGPN.GN ---
Behaviors/Verbalizations/Mental Status: []Client alert and oriented, neatly dressed and groomed. Eye contact good. Motor activity appropriate. Speech within normal limits. Affect full, mood euthymic. Thoughts linear, logical, no signs of hallucinations or delusions. Reviewed client?s symptom tracker, no risk for suicidal ideation, plan, or intent as of 06/10/19. Client Response/Progress/Benefit: []Client responded well to session, providing supportive feedback and emotional support. Client reports feeling ?sleepy? tired because she stayed up late last night. Client shared she does not feel bad about staying up late because she was practicing self-care. Client reported she has been prioritizing self-care more which has helped client find a better mental health balance. Client stated she also followed through with her goal from group yesterday and wrote out two positive affirmations. Client hung them on her wall, and she plans to do this with all her affirmations. Client?s affirmations focus on increasing self-esteem and confidence. Client reported her daughter saw client?s affirmations and client hope this will model positivity to her daughter. Client?s stressor this morning is that her children were running late for school. Client reported she handled the situation well with minimal anxiety. Appeared to benefit from reflecting on her generalization of coping skills. Will continue IOP tx to promote gains and further reduce intensity of symptoms.
--- NOTE | 2019-06-10 10:02 | BH.SGPN.GN ---
Behaviors/Verbalizations/Mental Status: [Eye contact is good. Motor activity is appropriate. Appearance is neat and casual. Speech is Appropriate. Mood is anxious, euthymic. Affect is congruent. Thoughts are linear and logical. No evidence of psychosis.] Client Response/Progress/Benefit: [Pt was an active participant in group activity and discussion. Attentive during psycho-education and willing to work with peers to define coping skills. Pt and the group discussed that coping skills included; skills to use to get us through difficult times, techniques to manage emotions, and reactions to difficult things//stressors in life. Group also worked together to identify how we learn our coping skills and pt indicated that ?learned behaviors?, habits, our environment, what has worked in the past, and supports contribute to commonly used means of coping. Group discussed that not all coping skills are healthy and identified common unhealthy coping skills. Pt indicated that in the past she has struggled with coping with her anxiety in unhealthy ways such as through; isolating, avoidance, reassurance-seeking, and becoming more irritable with others. She participated in challenge activity in which participants were tasked with applying healthy coping skills to remain calm and regulate themselves while working together to complete a difficult task. After the group related the activity to need for healthy coping skills in daily life and pt expressed that having a ?strong foundation is important to build upon?. Pt benefited from increased insight and education on healthy vs unhealthy coping and internal vs external coping skills. Recommended continued IOP tx to reduce anxiety, increase consistent skill application, and prevent decompensation.] Narrative Note: []
--- NOTE | 2019-06-10 11:11 | BH.SGPN.GN ---
Behaviors/Verbalizations/Mental Status: [Client alert and oriented, neatly dressed and groomed. Eye contact good. Motor activity appropriate. Speech within normal limits. Affect congruent, mood anxious, euthymic. Thoughts linear, logical, no signs of hallucinations or delusions. ] Client Response/Progress/Benefit: [Client responded well to session, engaged throughout and providing ideas during group brainstorming. Client appeared to connect with the activity from second group and helped the group identify benefits of having a strong foundation of internal and external coping skills. Client shared she came to IOP because her internal coping skills were not well developed, and she wanted to learn ways of better coping for herself. Client helped the group discuss the different categories of coping skills and provided examples. Client reported it is important to have a variety of coping skills so you have something else to fall back on if one skill doesn?t work or isn?t available. Client created a coping skills ?menu? for the five categories of coping skills. Client selected deep breathing, walking outside, positive self-talk, and using affirmational statements. Client appeared to benefit from increasing her repertoire of healthy coping skills. Progress noted in client?s improved mood and report of reduced intensity of anxiety symptoms. Client to continue IOP to promote gains and improve level of functioning.] Narrative Note: []
--- NOTE | 2019-06-12 09:07 | BH.SGPN.GN ---
Behaviors/Verbalizations/Mental Status: [Eye contact is good. Motor activity is appropriate. Appearance is neat, casual. Speech is Appropriate rate and tone. Mood is euthymic. Affect is congruent. Thoughts are linear and logical. No evidence of psychosis. Reviewed daily check in sheet and pt denies any active SI, plan, or intent. ] Client Response/Progress/Benefit: [Pt responded well to session, engaged throughout and open to processing with the group. Pt indicated current emotion as ?calm? and discussed that this is due to feeling accomplished in her ability to cope with being alone during the day without having a lot of racing or intrusive thoughts. Discussed that although down time is a stressor, she is glad to be finally taking the time to begin practicing her own self-care and learning to connect with her own needs. Pt identified this as a mental health ?win? and shared spending some increased time reading to relax as a result. Additional win as starting to more actively apply regulation skills outside treatment environment and is beginning to recognize improvement in her ability to prevent anxiety from escalating to point of crisis as a result. Pt appearing to benefit from support and structure of group environment. She continues to make progress in practicing internal means for coping and is recommended continued IOP tx to prevent decompensation, decrease anxiety, and promote ongoing application of healthy coping skills.] Narrative Note: []
--- NOTE | 2019-06-12 10:14 | BH.SGPN.GN ---
Behaviors/Verbalizations/Mental Status: []Client alert and oriented, neatly dressed and groomed. Eye contact good. Motor activity appropriate. Speech within normal limits. Affect full, mood euthymic. Thoughts linear, logical, no signs of hallucinations or delusions. Client Response/Progress/Benefit: []Client responded well to session, attentive and participating in small group discussion. Group identified the benefits to setting boundaries as well as the consequences of not setting healthy boundaries. Benefits included: improved mental wellness, improved self-worth, self-love, less stress, less resentment, and avoid being taken advantage of. Group discussed the consequences of not setting boundaries which included: worsening mental health, lack of progress, and staying stuck in unhelpful situations. Client attentive during discussion of the different types of boundaries and engaged in the self-assessment activity. Client reported she struggles with setting boundaries and saying no. Client reported she often afraid to disappoint others and she identified herself as a ?people pleaser.? Client able to recognize her own mental health suffers when she does not set boundaries. Client seemed to benefit from increased awareness how poor boundaries can negatively impact mental health. Client to continue IOP level of care to prevent decompensation of anxiety symptoms and improve daily functioning.
--- NOTE | 2019-06-12 16:10 | BH.MDN_ITS ---
Multi-Disciplinary Note - Note 30-min Individual Time Started:: 11:41 Date: 06/12/19 Purpose of session/treatment goals addressed:: Purpose of this session was to assess current symptoms, stressors, and progress in IOP. Another purpose was to identify ways to improve self-confidence and promote healthy boundary setting. Eye Contact:: Good Motor Activity:: Appropriate Appearance:: Neat, Casual Speech:: Appropriate Mood:: Euthymic, Anxious Affect:: Congruent Thoughts:: Linear, Logical, No evidence of hallucinations/delusions noted Staff Interventions:: Therapist asked open-ended and furthering questions to gather information regarding pt current sx, stressors, and treatment goal progress. Used empathic responses and supportive feedback to validate and normalize pt emotions and frustrations. Utilized KS techniques to elicit change behaviors. Provided education on healthy internal boundaries and aided pt in identifying strategies for improving her own boundaries. Client Response:: Pt receptive of session, actively engaged throughout. She did well to openly discuss areas of progress as well as ongoing areas she struggles with. Pt described actively working on homework from previous session which was to work on small self-care related goals. Noted working on her ?emotional health? related goal. Pt discussed spending time saying positive affirmations throughout the day and indicated noticing changes in her perspective of self as a result. Pt went on to describe improved self-confidence and ability to practice self-compassion on days she utilized affirmations. Went on to indicate not completing this goal each day throughout the week or consistently completing the other two goals of engaging in physical activity or spending at least 10 minutes on something she finds enjoyable daily. Pt did well to identify barriers preventing successful goal completion and identified that difficulties with time management continues to be her biggest barrier. Provided insight that she often takes on more responsibilities than she can manage on her own and has difficulties saying ?no? when asked to do something. Shared beliefs that this s due to guilt or fear that by saying ?no? to something for her kids they will end up missing out on important experiences. Pt open to discussing setting internal boundaries to improve ability to prioritize her own self-care needs and work on building confidence to establish healthier external boundaries. Worked with therapist to identify responsibilities pt could spend less time on or delegate to someone else in order to improve consistent application of self-care interventions. Agreeable to homework of continuing self-care goals established in prior session and establishing set times to complete self-care activities identified. Risks/Concerns:: No risks or concerns reported. Denies active SI, plan, or intent as of 06/12/19. Progress Toward Goals/Plan:: Some progress noted per pt report of improved self- confidence and progress in self-care goals. Indicates increased ability to apply positive affirmations, manage her emotions when interacting with her children during times they are experiencing their own behavioral problems, as well as increased physical activity. Although pt reports some progress towards goals identified in prior session, she continues to report difficulties prioritizing self-care which continues to impact her anxiety levels and ability to consistently challenge unrealistic expectations of self. Eceptive of discussion on setting healthy internal boundaries to improve time management and prior itizing her own mental health needs. Indicates plans to reduce current task load to allow for time to engage in daily self-care at least 10 minutes each day. Will continue in IOP to prevent decompensation, promote use of boundary setting skills, and increase strategies to manage emotions, and reduce anxiety. Time Stopped:: 12:06
== END 2019-06-16 23:59 ==
LOC: BHIOP 09:00
PROVIDERS: Family Provider Family Medicine; PCP Family Medicine; Referring Provider Psychiatry & Neurology Psychiatry; Visit Provider Psychiatry & Neurology Psychiatry
DX: F33.2 Major depressive disorder, recurrent severe without psychotic features (principal); F41.1 Generalized anxiety disorder; Z79.899 Other long term (current) drug therapy
CPT/HCPCS: H0035; 90832; 90834; 90853

== ENCOUNTER 2019-06-17 09:00 | Outpatient (RCR) | payer OTHER, SELFPAY ==
--- NOTE | 2019-06-17 15:42 | BH.MTP_ITS ---
Treatment Plan Review Date of Admission:: 05/20/19 Date of Treatment Plan Review:: 06/17/19 Admitting Diagnoses:: Major depressive disorder recurrent severe without psychosis F33.2, generalized anxiety disorder Current Diagnoses:: Major depressive disorder recurrent severe without psychosis F33.2, generalized anxiety disorder Patient's Response to Treatment:: Pt appears to be responding well to treatment, this is evidenced by consistent attendance, active participant in both group and individual sessions, and increased application of skills learned in her daily life outside of treatment environment. Pt presents as motivated to make positive changes in her life which is evidenced by setting healthy boundaries and taking on fewer responsibilities, as well as increasing her use of daily self-care time. Pt has begun to more openly discuss her mental health needs and familial stressors with her , she is increasing her willingness to reach out to other supports in her personal and occupational life, pt is additionally actively applying emotion regulation skills which she notes have aiding in reducing irritability. Pt has followed through with all assignments and small goals identified in session. She continues to maintain consistent attendance and active engagement in the IOP program both individually and in group sessions. Status of Current Problems and Symptoms: Pt continues to report progress in her ability to manage symptoms of depression and anxiety on a daily basis. She reports that her MH symptoms impact her daily functioning at a much lesser degree than prior to admission. Pt reports she feels more capable of managing her anxiety through application of positive self-talk, thought challenging, and calming skills. Pt is able to identify some of her warning signs for irritability, anxiety, and depression which has increased her ability to recognize when to apply a calming skills or thought challenging. Pt reports no longer taking on as many unnecessary responsibilities which in turn has aided in reducing overall anxiety and irritability. Pt continues to report periods of anxiety and irritability when her children are experiencing behavioral problems, or she begins thinking about her son?s ongoing difficulties in school. Despite continued struggles with consistently reminding herself to utilize thought challenging skills, she continues to make progress in this area. Pt completed the DSM-5 Cross Cutting Scales at admission and again today to further assess for tx progress. Per this scale pt had an 88.7% reduction in symptoms. Pt areas of reduction include: 87.5% reduction of depression, 82% reduction of anxiety, and 67% reduction of anger. Thoughts of hurting herself decreased from mild, several days of the week to none, not at all?. Pt reports increased confidence in her ability to regulate her emotions, however continues to struggle at times with agitation when overwhelmed and catastrophizing thoughts. Pt also reports increase in willingness to ask for help or say no to things that may add undue stress to her day. While tx progress has been noted pt continues to report some difficulties with ruminations, guilt about ?not doing enough? for her kids and others, as well as setting aside time for self-care. Pt progress has been discussed with clinical team and it is recommended that she continue in IOP to prevent decompensation, maintain gains, decrease isolation, continue to stabilize mood, and improve consistent skill application. Problem #1 Problem Name:: Depression Status of Goals:: Partially complete. Pt has made significant progress on this objective. Notes an 88% reduction in depression sx AEB DSM-5 Cross-cutting analysis QUESTIONAIRE. Obj 1- Complete; however would benefit from continued focus to maintain gains Obj 2- Pt is able to actively identify negative self- talk messages and is able to make significant progress in ability to replace these thoughts. Would benefit from continued focus in this area to improve consistency and maintain gains. Team Recommendations:: Client encouraged to continue working on this treatment goal to reinforce healthy coping skills and continue to further decrease symptoms of depression. Client and therapist currently working on thought challenging and practicing calming skills. Will continue IOP tx to maintain gains and continue to decrease depression related sx. Problem #2 Problem Name:: Anxiety Status of Goals:: Partially complete. Pt continues to make significant strides in reduction of anxiety sx. Notes a 82% reduction in anxiety scores on DSM 5- Cross-Cutting analysis QUESTIONAIRE. Obj1- Pt is able to identify a variety of skills to navigate stressful situations in healthy and effective ways, pt continues to struggle with consistent utilization of skills however when experiencing more than one stressor at once. Obj 2- Pt reports awareness of an xiety triggers and some warning signs however struggles with consist ability to independently apply coping skills. Pt still needs some work in this area. Team Recommendations:: Client encouraged to continue working on this treatment goal to reinforce healthy coping skills and continue to further decrease symptoms of anxiety. Client and therapist currently working on thought challenging and practicing calming skills. Will continue IOP tx to maintain gains and continue to decrease anxiety related sx.
--- NOTE | 2019-06-17 15:42 | BH.MDN_ITS ---
Multi-Disciplinary Note - Note 30-min Individual Time Started:: 10:46 Date: 06/17/19 Purpose of session/treatment goals addressed:: Purpose of this session was to review current symptoms, stressors, and progress towards tx goals. Another purpose was to identify areas for continued focus and small goals to continue to promote progress. Additional topics: Reviewed DSM cross-cutting scales, discussed effective communication for improving conflict resolution Eye Contact:: Good Motor Activity:: Appropriate Appearance:: Disheveled - pt dressed more casually and hair appearing dirty Speech:: Appropriate Mood:: Anxious, Dysthymic Affect:: Full Thoughts:: Linear, Logical, No evidence of hallucinations/delusions noted Staff Interventions:: Therapist asked open-ended and furthering questions to elicit information on pt current symptoms, stressors, and perceptions of treatment goal process. Applied strength?s-based approaches to promote self- efficacy, aid pt in identifying strengths, and continue to promote gains. Therapist utilized HI techniques to identify where pt has made gains, areas for continued growth, potential barriers, and small goals to continue application of change behaviors. Reviewed DSM cross-cutting scales with patient. Discussed strategies for managing anxiety and effective conflict resolution. Client Response:: Pt reports being in a more positive mood than this morning, but is continuing to struggle with anxiety related to her son?s behavior at school and potential ADHD diagnosis. Pt reports that she had received notice that his elementary school director had completed an observational assessment regarding his behaviors for her son?s bus system operator. Pt noted that this had been sealed so she is unsure of the recommendation made which has increased her anxiety. Pt reports improved ability to cope with intrusive thoughts regarding this and was able to allow herself to process her emotions and challenge distortions over the weekend which prevented pt from further ruminating on the results. Pt additionally noted that she reached out to her supports when feeling anxious which was helpful as well. Pt shared that despite experiencing anxiety about this and her son?s upcoming appointment to discuss the results of the assessment, pt has been able to continue to make progress. Pt indicates that practicing radical acceptance and reminding herself that ?this is not your fault and not in your control?, as well as identifying small components within her control has been helpful in continuing to reduce anxiety. Therapist and pt reviewed current DSM scores and discussed additional areas of progress. Pt shared being surprised by the drastic drop in overall scores as her scores at admission were a 62 and today?s DSM indicated scores at 7. Noted feeling she has made most progress with mood regulation, especially in the workplace. Continues to improve in her ability to calm herself prior to responding when her son is escalated. Additional improvement identified I area of self-care as pt shared she is taking at least five minutes a day to practice self-care by reading, coloring, or going for a walk. Pt identified wanting to focus on further strengthening boundaries as she continues to have difficulties in saying no when asked to take on additional responsibilities. Discussed creating a relapse prevention plan prior to IOP discharge. Risks/Concerns:: No risks or concerns noted. Pt denies active SI, plan, or intent as of this date, 06/17/19 Progress Toward Goals/Plan:: Progress noted per pt report of feeling her mental health sx of depression and anxiety have decreased, as well as increase reports of increased application of emotion regulation, anxiety management, and self- care skills. Pt completed DSM cross-cutting scales as this is week 4 of her IOP treatment. When compared to her DSM scores on admission pt showed a 88.7% decrease in symptoms. Pt showed a decrease in all categories including depression, irritability, intrusive thoughts, anxiety, and personal connection with others. Overall progress noted in areas of tx engagement and skill application. Pt continues to reports increased ability to apply healthy boundaries via saying no to additional responsibilities and setting aside time for personal self-care. Pt agreeable to plan for IOP discharge next Sunday following upcoming consultation of her son which is causing increased anxiety. Pt to continue IOP tx to maintain gains, prevent decompensation, and complete aftercare planning. Refer to treatment plan review for more information. Time Stopped:: 11:12
--- NOTE | 2019-06-18 09:04 | BH.SGPN.GN ---
Behaviors/Verbalizations/Mental Status: []Client alert and oriented, casual dress, hygiene tended to. Eye contact good. Motor activity appropriate. Speech within normal limits. Affect congruent, mood frustrated and positive. Thoughts linear, logical, no signs of hallucinations or delusions. Reviewed client?s symptom tracker, no signs of suicidal ideation, plan, or intent as of today. Client Response/Progress/Benefit: []Pt was an active participant in group discussion, providing input and openly processing with the group. Emotion for today is frustrated. Pt indicated that she has been struggling with morning routine with her children that doesn?t result in her yelling or being late. Pt stated she tried the technique of laying her son?s shoes out the night before, but still had problems with leaving on time this morning. Pt stated despite having a rough time leaving the house this morning she notes progress with taking time to reflect on what she can do differently tomorrow, instead of ruminating on what didn?t go well. Pt reported she recognizes in the morning she tends to add additional unnecessary tasks to her morning routine, which results in her being late and rushed. Pt stated tomorrow she is going to focus on only completing the necessary tasks. Additional positive as taking 10-15 minutes at the end of the day yesterday to have a conversation with her instead of just going to bed. Progress noted with pt?s increased positive thinking and improved ability to challenge distorted and negative thought patterns. Continued IOP tx recommended to maintain gains, prevent decompensation, and continue to improve healthy thought patterns. Narrative Note: []
--- NOTE | 2019-06-18 10:09 | BH.SGPN.GN ---
Behaviors/Verbalizations/Mental Status: [Client alert and oriented, casually and neatly dressed and groomed. Eye contact good. Motor activity appropriate. Speech within normal limits. Affect congruent, mood anxious, euthymic. Thoughts linear, logical, no signs of hallucinations or delusions.] Client Response/Progress/Benefit: [Client was an active participant throughout, AEB providing input, note-taking, and listening attentively to peers. The group discussed the quote and how the emotion anger is not good or bad, but one can respond to anger in healthy or harmful ways. Client worked with the group to define anger and its causes, as well as the internal and external impacts of anger. Group identified potential consequences of unhealthy management of anger to include: increased stress, loss of relationships, guilt, more problems being created, anxiety and worsening mental health symptoms. Client identified underlying factors of her anger which included: anxiety, fear of something happening to her children, guilt, feeling overwhelmed/stressed, and loneliness. Client stated becoming short, shutting down, and crying are common responses she has when feeling angry. Benefited from group by increasing awareness of the negative impacts of unmanaged anger and underlying factors that contribute to her personal anger. Progress noted as client reports increased self-awareness and ability to cope with stress without becoming irritable. Will continue IOP tx to further reduce negative self-talk, increase anxiety management, and promote mood stability.] Narrative Note: []
--- NOTE | 2019-06-18 11:15 | BH.SGPN.GN ---
Behaviors/Verbalizations/Mental Status: []Client alert and oriented, neatly dressed and groomed. Eye contact good. Motor activity appropriate. Speech within normal limits. Affect congruent, mood euthymic. Thoughts linear, logical, no signs of hallucinations or delusions Client Response/Progress/Benefit: []Client responded well to session, positive contributions and attentive throughout. Client participated in group activity and able to connect how managing anger takes patience, calming skills, and acceptance. Group identified the benefits of effectively managing anger which included; advocating for oneself, reducing consequences, reducing mental health symptoms, and expressing one?s needs. Client reported one?s response to anger can be hard to change, but it is possible to cope in healthier ways. Client shared for her, managing anger can be a motivator for change. Client helped the group identify coping skills to more effectively manage anger which included; deep breathing, self-compassion, taking a step back, DDD, challenging perspective, and using S.T.O.P. Client appeared to benefit from gaining coping skills to more effectively manage anger. Will continue IOP level of care to promote gains and further improve self-care strategies.
--- NOTE | 2019-06-19 09:05 | BH.SGPN.GN ---
Behaviors/Verbalizations/Mental Status: [] Eye contact is good. Motor activity is appropriate. Appearance is casual. Speech is Appropriate. Mood is euthymic. Affect is full. Thoughts are linear and logical. No evidence of psychosis. Reviewed daily check in sheet and no reports of suicidal ideations or intent. Client Response/Progress/Benefit: [] Pt was an active participant in group discussion. Emotion for today is comfortable. Shared with the group that she reached out to a friend for lunch. Notes this as mental health win as she does not typically reach out for these types of things and is more passive in relationships. Also discussed several situations in which she was more assertive and completed tasks she felt was important rather than ruminating on how it would impact others or people pleasing. Has meeting with her therapist after group stating that she has not seen her since she started IOP noting back when I was a hot mess. Progress noted per pt report. Will continue with IOP to maintain gains and prevent decompensation. Narrative Note: []
--- NOTE | 2019-06-24 09:01 | BH.SGPN.GN ---
Behaviors/Verbalizations/Mental Status: []Client alert and oriented, casual dress, hygiene tended to. Eye contact good. Motor activity appropriate. Speech within normal limits. Affect congruent, mood euthymic and positive. Thoughts linear, logical, no signs of hallucinations or delusions. Reviewed client?s symptom tracker, no signs of suicidal ideation, plan, or intent as of today. Client Response/Progress/Benefit: []Pt was an active participant in group discussion, providing input and openly processing with the group. Emotion for today is giddy. Pt reported current stressor is meeting with son's senior it specialist today to review the results of ADHD questionnaires various people in her son's life had to complete. Pt stated she is anxious because doesn't want something to be wrong with her son, but at the same time is looking forward to having answers as to what's going on with him. Pt noted progress as being able to manage her anxiety more effectively in regards to worrying about the meeting with son's senior it specialist. Pt stated she has used positive self-talk and reminding herself to focus on what is in her control as strategies to help her cope. Additional positive as being able to go to her daughter's entire softball game and I actually got to enjoy the game and be present. Pt stated about 6 weeks ago when she went to her daughter's first softball game she couldn't focus because was too anxious about what other's were thinking about her. Pt reported she can see significant progress with being able to manage her anxiety. Continued IOP tx recommended to maintain gains, prevent decompensation, and continue to utilize healthy coping skills. Narrative Note: []
--- NOTE | 2019-06-24 10:13 | BH.SGPN.GN ---
Behaviors/Verbalizations/Mental Status: []Client alert and oriented, neatly dressed and groomed. Eye contact good. Motor activity appropriate. Speech within normal limits. Affect congruent, mood euthymic. Thoughts linear, logical, no signs of hallucinations or delusions. Client Response/Progress/Benefit: []client was an active participant in group discussion and activity. Contributed to discussion on quote of the day as she shared growth can mean many different things. Client stated ?we sometimes just trust growth will happen, but it takes effort.? Client both positive and negative life forces can cause growth. Group worked together to come up with common negative forces in life which can hold them back from growth. These included; toxic relationships, negative thoughts, cognitive distortions, lack of self-care, and trauma. Group then worked together to identify common positive forces which help us grow. These included; healthy coping skills, positive support, self-care, patience, realistic and positive thinking, and self-awareness. Client was attentive during psychoeducation on the importance of utilizing many forces to help one grow. Benefited from group with increased insight and awareness on the impact of negative and positive forces on mental wellness.
--- NOTE | 2019-06-24 11:11 | BH.SGPN.GN ---
Behaviors/Verbalizations/Mental Status: [Client alert and oriented, casually and neatly dressed and groomed. Eye contact good. Motor activity appropriate. Speech within normal limits. Affect congruent, mood anxious and euthymic. Thoughts linear, logical, no signs of hallucinations or delusions.] Client Response/Progress/Benefit: [Client willing to participate in activity and provided supportive feedback and suggestions throughout. She engaged in discussion connecting activity to review of how positive and negative forces impact life and mental wellness and the importance of balancing forces in life. Client identified personal positive forces that aid in progressing toward mental health goals include: reaching out to supports, challenging distorted and anxious thoughts, her family, having a supportive job, willingness to keep trying, and therapy. Client indicated personal negative forces include: difficulties managing mental health sx, fear of her children?s health being impacted, difficulties in communicating, loneliness, and overscheduling herself. Progress noted in client ability to identify ways in which internal forces can impact personal growth. Client seemed to benefit from increased awareness of personal positive and negative forces in life and impact they have on mental health and wellness. Client to continue IOP level of care to continue to decrease anxiety and catastrophizing, improve ability to regulate emotions, and prevent decompensation.] Narrative Note: []
--- NOTE | 2019-06-25 09:05 | BH.SGPN.GN ---
Behaviors/Verbalizations/Mental Status: [Client alert and oriented, neat and casual dress, hygiene tended to. Eye contact good. Motor activity appropriate. Speech within normal limits. Affect congruent, mood dysthymic. Thoughts linear, logical, no signs of hallucinations or delusions. Reviewed client?s symptom tracker, no signs of suicidal ideation, plan, or intent as of today. ] Client Response/Progress/Benefit: [Pt was an active participant AEB engagement in group discussion and openly processing with the group. Emotion for today is satisfied but sad as pt indicated feeling relieved to know her son?s diagnosis of ADHD but a little sad that he has this additional stressor to live with. Pt did well to identify areas within her control regarding how she responds to the newfound information. Indicated mental health win to include not becoming overwhelmed or panicking, but instead created a list of questions with her to ask the doctor and better prepare themselves. Pt notes additional win as spending some time on self-care via going for a walk after the doctor?s appointment. Progress identified in pt self-reported improvements in applying healthy coping and anxiety management skills outside of tx environment. Continued IOP tx recommended to continue to promote application of healthy coping skills, decrease anxiety, and prevent decompensation.?] Narrative Note: []
--- NOTE | 2019-06-25 10:24 | BH.NOTE ---
BH: Inpatient Note - Notes Behavioral Health Inpatient Note: Dr. Hernandez requested that this INKJET OPERATOR meet with client to assess progress and address need for medication refills. Client notes that she continues to improve in her mood and is having much fewer mental health symptoms. Client denies any adverse effects from the Lexapro, and has completely weaned off the Zoloft. Per verbal order from Dr. Hernandez, the following prescription was called into [facility]: Lexapro 20mg PO daily, #30, NO refills Client will DC from IOP this week and will follow-up with her outpatient counselor and PCP for medication management. Mya Sandhu, MSN, RN
--- NOTE | 2019-06-25 11:20 | BH.SGPN.GN ---
Behaviors/Verbalizations/Mental Status: []Client alert and oriented, casually dressed and groomed. Eye contact good. Motor activity appropriate. Speech within normal limits. Affect congruent. Mood euthymic. Thoughts linear, logical, no signs of hallucinations or delusions. Client Response/Progress/Benefit: []Client responded well to session, providing input during discussion and listening attentively to peers. Client engaged in the group activity as shown by client working cooperatively with others and providing ideas to group. When processing activity client stated she initially didn't think the group could do any better, but with encouragement from supports she was willing to keep trying. Worked with group to identify how the group utilized all of the resiliency factors to help them overcome a challenge that initially seemed impossible. Client reported she wants to work on the resiliency factor of accepting that change is a part of living. Client shared she often would view change as a negative thing, but wants to work on embracing change. Client seemed to benefit from identifying what resiliency factor she wants to improve to increase personal resilience. Client to continue IOP maintain gains, continue to identify and challenge negative thoughts and prevent decompensation. Narrative Note: []
--- NOTE | 2019-06-25 16:19 | BH.MDN_ITS ---
Multi-Disciplinary Note - Note 45-min Individual Time Started:: 10:43 Date: 06/25/19 Purpose of session/treatment goals addressed:: The purpose of this session was to review overall progress, process pt recent stressor, and discuss current sx management. Another goal was to create strategies for success that will continue to maintain gains, promote emotional regulation, application of of healthy coping skills, and address identified barriers. Eye Contact:: Good Motor Activity:: Appropriate Appearance:: Casual Speech:: Appropriate Mood:: Anxious, Dysthymic Affect:: Congruent Thoughts:: Linear, Logical, No evidence of hallucinations/delusions noted Staff Interventions:: Therapist used open-ended questions to discuss pt recent stressors and utilized strengths-based approaches to commend pt ability to successfully manage stressors. Therapist provided encouragement and empathic responses as pt discussed experiencing mixed emotions regarding current stressor and upcoming IOP discharge. Pt and therapist reflected on her progress and created a concrete maintenance plan consisting of healthy coping skills, reminders, and positive messages to help client maintain progress. Therapist and pt reviewed aftercare plan. Client Response:: Client responded well to session, actively engaged throughout. She reporting feeling satisfied but a little sad about her son?s recent ADHD diagnosis. Went on to discuss feeling satisfied with how she responded to the official diagnosis and reflected that she was proud to know her continued efforts in advocating for her son is resulting in increased services and supports for him. Pt shared feeling sad that he is struggling with concentrating at school but more confident in her ability to help him receive after consulting with a professional about his needs. Pt additionally reports her has been more supportive in this area as well. Note feeling that her ability to cope with difficult information without catastrophizing is a sign she has made significant progress since beginning IOP tx and feels prepared to discharge from IOP tx this week. Therapist is in agreement with this given pt progress in anxiety management, self-care, and setting boundaries with herself to begin taking on fewer responsibilities. Remainder of session was spent reviewing warning signs for decompensation, discussing potential barriers to maintaining gains, and identifying strategies for success. Pt identified her strategies for success as: deep breathing using the figure eight technique, opposite action such as watching a comedy when feeling sad, spending time with her supports, exercising, and setting aside daily time for self-care. Pt expressed that reminding herself ?it?s okay to feel different emotions, you can?t stop the way you feel but you can learn how to cope with it?. Pt expressed appreciation for the [facility] program and clinical staff, she is additionally agreeable to setting up an aftercare appointment prior to discharge tomorrow. Risks/Concerns:: No risks or concerns at this time, pt denies suicidal ideation, intent, and plan as of 06/25/19. Progress Toward Goals/Plan:: Pt has made significant progress towards treatment goals as she reports reduced intensity and duration of anxiety, irritability, and depression impacting daily functioning. Pt reports increased confidence in communicating with supports and implementing healthy coping skills. Pt additionally reports making regular efforts to practice self-care daily and improve her ability to set healthy boundaries by not taking on more responsibilities than she can manage. Pt shared beliefs her ability to consistently take medications as prescribed has been a major contributor to her success as well. Pt to discharge from [facility] tomorrow, 06/26/19, and follow up with outpatient counseling to promote gains and maintain mood stability. Time Stopped:: 11:21
--- NOTE | 2019-06-26 09:10 | BH.SGPN.GN ---
Behaviors/Verbalizations/Mental Status: [] Eye contact is good. Motor activity is appropriate. Appearance is casual. Speech is Appropriate. Mood is euthymic. Affect is full. Thoughts are linear and logical. No evidence of psychosis. Reviewed daily check in sheet and no reports of suicidal ideations or intent. Client Response/Progress/Benefit: [] Pt was an active participant in group discussion. Shared that today is her last day in [facility] and that she is feeling proud, excited, and sad. Notes that she feels stabilized and is functioning much better than when she entered the program. Managing stressors at well more effectively. Less overwhelmed and anxiety about events. More active, more energy, and decreased hopelessness. Increased confidence in her ability to manage her anxiety and depression. Shared with peers that skills and groups which she believed were most beneficial including cognitive distortions. Progress noted per pt report. Will be discharged from [facility] today. Narrative Note: []
--- NOTE | 2019-06-26 09:32 | BH.AFTERPLAN ---
Aftercare Plan - Demographics Treatment End Date:: 06/26/19 Psychiatrist:: Jennifer Hernandez Psychiatrist Office #:: [phone] [facility]/IOP Therapist:: Faith Lee Therapist Phone #:: [phone] - Medications Home Medications: Home Medications Multivitamins,Therapeutic [Multivitamin] 1 tablet PO DAILY 06/08/16 Cholecalciferol (Vitamin D3) [Vitamin D3] 5,000 unit PO DAILY 05/21/19 Cyanocobalamin (Vitamin B-12) [Vitamin B12] 2,500 mcg PO DAILY 05/21/19 Escitalopram Oxalate [Lexapro] 20 mg PO DAILY 06/04/19 - Plan Details Progress/Aftercare Plan Details:: katie has demonstrated significant progress with managing her mental health symptoms since beginning the IOP program. Denise has done well with beginning to implement coping skills to reduce her anxiety and ruminating thoughts. Client reports she has seen progress with less catastrophic thinking patterns and improved ability to accept of herself and her own limits when it comes to taking on new responsibilities. Denise has seen a decrease in depression as well and increased ability to regulate her emotions when becoming worried or agitated. Client reported feeling as though she has become more comfortable in ding things on her own and indicates increased ability to reduce loneliness during the day by practicing self-care. Client shared she has been able to challenge her negative thinking more, practice accepting what is within her control, and remind herself of the progress she has made. Client demonstrated progress with incorporating small steps and focusing on daily progress to increase self-esteem and confidence. Client has progressed with increasing communication with her and other supports. Client has also shown increased ability to cope with anxiety to reduce the duration and intensity through use of positive affirmations, thought challenging, deep breathing, and mindfulness. Strategies for Success:: 1. Remember that it?s okay to say NO to things! You are allowed to delegate or to take a step back from responsibilities that you don?t find meaningful. 2. Remember that progress isn?t always going to be linear, There will be good days and bad days - A setback doesn't mean you are starting over! 3. Use that positive self-talk to challenge anxious and catastrophic thinking. 4. Remember to check-in with yourself. No emotion is a bad emotion, but it is always important to ask yourself ?What is going on that might be impacting the way I feel and what can I do or say that will help right now?? 5. Make time for self care! You are just as important as everyone else in your life and you can?t give them the care you would like if you don?t set aside time for yourself. 6. Don't forget to reflect on progress and keep journaling! - Appointments Appointments/Referrals to Other Services:: Client to follow up with your outpatient therapist for ongoing counseling. Continue with your PCP for medication management until you can establish psychiatry with one of the agencies provided.
--- NOTE | 2019-06-26 10:10 | BH.SGPN.GN ---
Behaviors/Verbalizations/Mental Status: []Client alert and oriented, neatly dressed and groomed. Eye contact good. Motor activity appropriate. Speech within normal limits. Affect full, mood euthymic. Thoughts linear, logical, no signs of hallucinations or delusions. Client Response/Progress/Benefit: []Client active participant as shown by client?s contribution to discussion and engagement in activity. Client agreed with peers that self-care is important because without it we cannot give effectively to others or function at baseline. Client participated in the discussion of the common myths about self-care including self-care is selfish, self-indulgent, take too much time, and always fun. Client gave examples of self-care activities such as setting boundaries, taking medication, going to therapy, and admitting one needs help. Client stated before she started IOP she thought self-care did not exist, but she now realizes she has to make time for it and when she does it positively impacts client. Client engaged in activity and able to connect how sometimes to make self-care a priority, a person must set boundaries in other areas of their lives. Client seemed to benefit from increased awareness of the importance of self-care. Client to discharge from [facility] today as she has made significant progress towards her treatment goals and no longer meets criteria for IOP level of care.
--- NOTE | 2019-06-26 11:15 | BH.SGPN.GN ---
Behaviors/Verbalizations/Mental Status: [Client alert and oriented, casually dressed and appropriately groomed. Eye contact good. Motor activity appropriate. Speech within normal limits. Affect congruent, mood anxious, euthymic. Thoughts linear, logical, no signs of hallucinations or delusions. ] Client Response/Progress/Benefit: [Pt responded well to session, actively listening and willing participant in both discussion and worksheet activity. Worked with the group to further process the activity and discussion on the importance of self-care in management mental health and preventing burnout. Pt engaged in the discussion and self-assessment of the different areas of self-care, noting she has struggled with emotional components of self-care and has previously taken on too many responsibilities out of fear of saying no and then becoming anxious to the point of panic as a result. Pt reports connecting with discussion on the mental health effects of not making self-care a priority. Pt set a goal to improve in the area of spiritual self-care by beginning a meditation practice. Pt appeared to benefit from increasing awareness of how she can improve self-care balance. Pt progress noted in pt ability to identify impact current lack of self-care activities has had on mental health and maintaining depression and anxiety. Recommended continued IOP to continue to reduce depression, improve self-care skills, and prevent decompensation.] Narrative Note: []
--- NOTE | 2019-06-26 14:13 | BH.DS ---
Discharge Summary - Demographics Date of Admission:: 05/20/19 Discharge Date: 06/26/19 Presenting Problems at Admission:: Pt is a 38-year-old female with a history of depression and anxiety. Pt reports worsening symptoms in the 3-4 weeks prior to [facility] admission. Pt reports symptoms increased after returning from a vacation with her family on April 27, 2019. At time of admission to [facility], pt endorsing increased depression, worthlessness, hopelessness, crying spells, lack of motivations, anhedonia, low energy, fatigue, decreased appetite, poor concentration, forgetfulness, and passive thoughts of . Pt additionally reports having fleeting suicidal ideation without plan or intent. Denies active SI, plan, and intent. Pt additionally reports intrusive thoughts, rumination, and daily panic attacks. Panic is controllable if pt calls a support person. Pt?s works in [place] and is gone a majority of the day, which leaves pt as primary caregiver for their 2 children. At admission, pt?s symptoms were continuing to interfere with her social, occupational, and familial functioning. Discharge Diagnoses:: Major depressive disorder recurrent severe without psychosis F33.2, generalized anxiety disorder Reason for Discharge:: Client has made significant progress towards her treatment goals as shown by her report of reduced depression and anxiety, decrease in DSM-5 cross-cutting scores, as well as improved overall functioning. Client no longer meets criteria for [facility] level of care and feels able to sustain gains made through ongoing individual outpatient therapy. - Treatment Progress During Treatment & Response: Client has demonstrated significant progress with managing her mental health symptoms since beginning the IOP program. She has done well with beginning to implement healthy coping skills to reduce her anxiety and ruminating thoughts. Client reports she has seen progress with less catastrophic and distorted thinking patterns, as well as indicates an improved ability to accept of herself and her own limits when it comes to taking on new responsibilities. Client has seen a decrease in depression as well and increased ability to regulate her emotions when becoming worried or agitated. Client reported feeling as though she has become more comfortable in ding things on her own and indicates increased ability to reduce loneliness during the day by practicing self-care. Client shared she has been able to challenge her negative thinking more, practice accepting what is within her control, and remind herself of the progress she has made. Client demonstrated progress with incorporating small steps and focusing on daily progress to increase self-esteem and confidence. Client has progressed with increasing communication with her and other supports. Client has also shown increased ability to cope with anxiety to reduce the duration and intensity through use of positive affirmations, thought challenging, deep breathing, and mindfulness. While in the IOP treatment program, Client maintained consistent attendance and engagement. She was an active participant throughout both individual and group sessions and did well to apply materials learned in her daily life. CLient made efforts to complete all homework provided. Client additionally demonstrated progress as evidenced by a reduction of 93.5% on DSM-5 Cross-cutting scores. Issues Still to be Addressed:: Client has made progress with implementing healthy coping skills to reduce anxiety and rumination. Client reports thought challenging, positive self-talk, and deep breathing have been most helpful. Client also has demonstrated progress with reframing and allowing herself to accept and learn to process her own emotions. There is concern post discharge that client will get back into her busy routine and forget to make time for self-care and thought challenging. Additionally, there is concern that client will struggle to set boundaries with herself and others and end up taking on more stressors than is manageable as she has in the past. Client can continue to benefit from accepting stressors out of her control, focusing on daily progress, and challenging intrusive thoughts that lead to catastrophizing and rumination. Discharge Recommendations/Instructions:: Client to follow up with your outpatient therapist for ongoing counseling. Continue with your PCP for medication management until you can establish psychiatry with one of the agencies provided. She reports reaching out to [facility] however was told they did not accept her insurance, she now reports plans to follow-up with [facility] for an intake psychiatry appointment. Discharge Handout: Complete Discharge Handout with client on aftercare options and continuity of care.
== END 2019-06-26 15:21 | disposition home or self-care (01) ==
LOC: BHIOP 09:00
PROVIDERS: Family Provider Family Medicine; PCP Family Medicine; Referring Provider Psychiatry & Neurology Psychiatry; Visit Provider Psychiatry & Neurology Psychiatry
DX: F33.2 Major depressive disorder, recurrent severe without psychotic features (principal); F41.1 Generalized anxiety disorder
CPT/HCPCS: H0035; 90832; 90834; 90853

== ENCOUNTER → 2019-10-15 13:36 | Outpatient (CLI) | payer OTHER, SELFPAY | PROVIDERS: PCP Family Medicine; Referring Provider Nurse Practitioner Family; Visit Provider Nurse Practitioner Family | DX: R19.7 Diarrhea, unspecified (principal) | CPT/HCPCS: 87177; 87209; 87493; 87506 ==

== ENCOUNTER 2019-11-18 06:22 | Day surgery (SDC) | payer OTHER, SELFPAY ==
--- NOTE | 2019-11-03 01:40 | HP_ITS ---
Intake Vital Signs 11/03/19 BMI 37.3 Intake Visit Reasons: C-Scope Consult Family HX & IBS Symptoms Chief Complaint: COUGH Allergies No Known Allergies Allergy (Verified 10/28/19 08:58) [facility] Medical History (Updated 11/03/19 @ 13:38 by Valdemar Ramirez MD) Hemorrhoids (Acute) Acid reflux (Acute) Diarrhea (Acute) Anxiety (Acute) Depression (Acute) Fatigue (Acute) Generalized anxiety disorder (Acute) Major depressive disorder, recurrent severe without psychotic features (Acute) Vitamin D deficiency (Acute) Hypercholesteremia (Acute) Surgical History (Updated 11/03/19 @ 13:35 by Soledad Magaña) Hx of LASIK (Acute) Hx of dilation and curettage (Acute) Hx of tonsillectomy (Acute) Hx of cholecystectomy (Acute) Family History Father Colon cancer, Onset Age: 58 Hypertension Mother High cholesterol Sister Asthma Social History (Updated 11/03/19 @ 13:40 by Valdemar Ramirez MD) Smoking Status: Never smoker alcohol intake: never substance use type: does not use caffeine: Yes what type of physical activity do you participate in: none frequency: does not exercise seatbelt use: always HPI HPI HPI: ARELIS RAMIREZ, is a 39 F who presents to the office today for HPI HPI Surgical H&P: Yes HPI: ARELIS RAMIREZ, is a 39 F who presents to the office today for who is referred for surgical consultation by her primary care physician Dr. Selwyn Beal. Written copy of my surgical consult recommendations will return to him. The patient has been having diarrhea almost extending since July 2019. It has waxed and waned to a bit but not resolved. One occasion she noted some bright red blood but this has not been consistent. There is no family history of Crohn's disease or ulcerative colitis but there is a family history of colon cancer in her father at age 58. She has never personally had a colonoscopy. Within the past week she was initiated on Augmentin therapy and treatment of bronchitis. That clearly is because recurrence of aggravated GI symptoms. About 3 weeks ago she was checked for C. difficile and ova and parasites and that was negative. She is a nurse on third floor working weekends. It is of note that she does have symptoms that she thinks might be like IBS. There are some issues with anxiety and depression. She is on appropriate medication. Exam Const General: cooperative, healthy appearing, comfortable, no acute distress Nutritional Appearance: overweight Orientation: alert, awake Chest Chest palpation & inspection: normal inspection of the chest Resp Effort & Inspection: normal respiratory effort Auscultation: clear to auscultation bilaterally Cardio Rate: regular rate Rhythm: regular rhythm GI Palpation: soft Auscultation: normal bowel sounds Skin General: no rashes or lesions noted Neuro Cognition: normal cognition Extrem General: no calf tenderness bilaterally Psych Affect: normal affect Assessment & Plan Problems 1. Diarrhea, unspecified type R19.7 Plan 3-month history of diarrhea of undetermined etiology. Stool analysis for ova and parasites and C. difficile were negative. Family history notable for colon cancer in her father. I believe that is very reasonable to offer her a colonoscopy with possible biopsy or polypectomy is indicated. She is aware of the technique, benefit, risk, alternatives. She does have some anxiety and depression. We will utilize monitored anesthesia care. She does work sundays. We will try to schedule and expedite her care. I appreciate the opportunity of assisting with her surgical care Cc: Dr. Selwyn Ramirez M.D., F.A.C.S. Coding Level of Care Code 52347 Diagnoses Diarrhea, unspecified type R19.7 ??Diarrhea type: unspecified type 11/03/19 1340 <Electronically signed by Valdemar hendrix MD> Date _ Valdemar Ramirez MD I have re-examined the patient. There are no clinical changes since date of exam.
[2019-11-03 13:40] VITALS: BMI 38.9
[2019-11-18] VITALS (7 sets, daily range): BP systolic 104–129; BP diastolic 52–74; PULSE 67–92; RESP 14–16; TEMP 36.4–36.9; O2SAT 95–99; BMI 39.2
[2019-11-18 06:48] LABS: Internal QC Validated? YES +Cl - CLEAR BKGD; Pregnancy, Urine Negative Negative
[2019-11-18] MEDS: Lactated Ringers 1,000 ML 100 ML IV (07:12)
--- NOTE | 2019-11-18 07:30 | COLBX_PTH ---
PATIENT: ARELIS RAMIREZ LOC: EN U#:[id number] AGE/SX: 39/F ROOM: RE11/18/[address]: Dr. Valdemar Ramirez MD : 1980 BED: DIS: 11/18/2019 SPEC #: [id number] RECD: 11/18/19 10:45 STATUS: FRITZ ANSHU #: [id number] BEVERLY: 11/18/19 07:[address]: Valdemar Ramirez DEPT: SURGICAL PATHOLOGY RECD BY: Te Anthony ENTERED: 11/18/19 13:32 SP TYPE: COLON BX OTHR DR: Dr. Selwyn Beal MD Tissues: COLON BIOPSY Procedures: Surgery Specimen Level IV HEADER OPERATION: Colonoscopy (MAC) PRE-OP DIAGNOSIS: Diarrhea TISSUE SUBMITTED: Random colonic biopsies MICROSCOPIC DIAGNOSIS Colon, random biopsy: Fragments of colonic mucosa, no pathologic diagnosis. JARED:marcie 11/19/19 MICROSCOPIC DESCRIPTION Slides are reviewed. GROSS DESCRIPTION Received in fixative is one container labeled with the patient's name and designated random colonic biopsy. The specimen consists of multiple irregular fragments of light crawford soft tissue that in aggregate measure 1.5 x 0.5 x 0.1 cm. The specimen is totally submitted in one cassette. / SJ:marcie 11/18/19 TC:4 CPT: 15572
--- NOTE | 2019-11-18 08:02 | OP.CCLET_ITS ---
11/18/2019 Filipe Beal [address] [place] [address] Re : Colonoscopy procedure for Denise Sevilla Dear Dr. Beal This procedure was performed on Monday, November 18, 2019. My impressions and recommendations are as follows: Impressions : - Hemorrhoids found on perianal exam. - Diverticulosis in the sigmoid colon. Biopsied. - The examination was otherwise normal. Recommendations : - Discharge patient to home. - Resume previous diet. - Telephone my office for pathology results in 1 week. - Repeat colonoscopy in 5 years for surveillance. Family history of colon cancer in father - Continue present medications. My findings are described in the full procedure note, which is enclosed. If I can be of further assistance, please feel free to contact me at Doctor phone number(s): Work: . Sincerely, Valdemar Ramirez MD 11/18/2019 8:01:38 AM This report has been signed electronically.
--- NOTE | 2019-11-18 08:02 | OP.COLON_ITS ---
Patient Name: Denise Sevilla Procedure Date: 11/18/2019 7:29 AM Date of : 1980 Age: 39 Procedure: Colonoscopy Indications: Clinically significant diarrhea of unexplained origin Providers: Valdemar Ramirez MD Referring MD: Filipe Beal Medicines: See the Anesthesia note for documentation of the administered medications Patient Profile: Last Colonoscopy: none. The patient's first colonoscopy is today. Complications: No immediate complications. Procedure: Pre-Anesthesia Assessment: - Prior to the procedure, a History and Physical was performed, and patient medications and allergies were reviewed. The patient's tolerance of previous anesthesia was also reviewed. The risks and benefits of the procedure and the sedation options and risks were discussed with the patient. All questions were answered, and informed consent was obtained. Prior Anticoagulants: The patient has taken no previous anticoagulant or antiplatelet agents. ASA Grade Assessment: II - A patient with mild systemic disease. After reviewing the risks and benefits, the patient was deemed in satisfactory condition to undergo the procedure. After I obtained informed consent, the scope was passed under direct vision. Throughout the procedure, the patient's blood pressure, pulse, and oxygen saturations were monitored continuously. The pediatric colonoscope was introduced through the anus and advanced to the cecum, identified by appendiceal orifice and ileocecal valve. The colonoscopy was somewhat difficult due to a tortuous colon. Successful completion of the procedure was aided by changing the patient to a supine position and using manual pressure. The patient tolerated the procedure well. The quality of the bowel preparation was good. Scope In: 7:41:55 AM Scope Withdrawal Time 0 hours 7 minutes 11 seconds Scope Out: 7:56:36 AM Total Procedure Duration Time 0 hours 14 minutes 41 seconds Findings: Hemorrhoids were found on perianal exam. Multiple diverticula were found in the sigmoid colon. Biopsies for histology were taken with a cold forceps from the entire colon for evaluation of microscopic colitis. The exam was otherwise without abnormality. Impression: - Hemorrhoids found on perianal exam. - Diverticulosis in the sigmoid colon. Biopsied. - The examination was otherwise normal. Recommendation: - Discharge patient to home. - Resume previous diet. - Telephone my office for pathology results in 1 week. - Repeat colonoscopy in 5 years for surveillance. Family history of colon cancer in father - Continue present medications. Procedure Code(s): --- Professional --- 76909, Colonoscopy, flexible; with biopsy, single or multiple Diagnosis Code(s): --- Professional --- K64.9, Unspecified hemorrhoids R19.7, Diarrhea, unspecified K57.30, Diverticulosis of large intestine without perforation or abscess without bleeding CPT copyright 2017 [employer]. All rights reserved. The codes documented in this report are preliminary and upon director of casework review may be revised to meet current compliance requirements. Valdemar Ramirez MD 11/18/2019 8:01:38 AM This report has been signed electronically. Number of Addenda: 0 Note Initiated On: 11/18/2019 7:29 AM
== END 2019-11-18 08:45 | disposition home or self-care (01) ==
LOC: EN 06:22 → AC 06:24
PROVIDERS: Anesthesiology; PCP Family Medicine; Referring Provider Family Medicine; Visit Provider Surgery
PROC: 0DJD8ZZ Inspection of Lower Intestinal Tract, Via Natural or Artificial Opening Endoscopic (ICD-10-PCS; CPT 45378; principal; 2019-11-18 07:25)
DX: K64.9 Unspecified hemorrhoids (principal); K57.30 Diverticulosis of large intestine without perforation or abscess without bleeding; Z80.0 Family history of malignant neoplasm of digestive organs; Z90.49 Acquired absence of other specified parts of digestive tract; F32.9 Major depressive disorder, single episode, unspecified; F41.9 Anxiety disorder, unspecified
CPT/HCPCS: 45380; 81025; 88305; J7120; J2405

== ENCOUNTER → 2020-05-17 10:53 | Outpatient (CLI) | payer OTHER, SELFPAY ==
[2019-11-18 06:50] VITALS: BMI 39.2
[2020-05-17 12:17] LABS: Vitamin B12 1404 pg/mL (211-911); Vitamin D,25 Hydroxy 39.9 ng/mL
[2020-05-17 12:19] LABS: ALB/GLOB Ratio 0.8 RATIO (0.9-2.4); AST(SGOT) 16 U/L (15-37); Alanine Aminotransfer ALT/SGPT 26 U/L (13-56); Albumin, Serum 3.5 g/dL (3.2-5.0); Alkaline Phosphatase 70 U/L (45-117); Anion Gap 5 (5-15); BUN 13 mg/dL (7-18); BUN/Creat Ratio 19.9 RATIO (10-20); Calcium,Total 9.1 mg/dL (8.5-10.1); Chloride 108 mmol/L (98-107); Cholesterol 247 mg/dL (200); Creatinine, Serum 0.65 mg/dL (0.55-1.02); EST Glomerular Filtration Rate 108 mL/min (>60); Est Glom Filt Rate - Afr Amer 130 mL/min (>60); Free T3 2.5 pg/mL (2.18-3.98); Globulin 4.2 g/dL (2.2-4.2); Glucose 90 mg/dL (74-106); High Density Lipoprotein 37 mg/dL; Potassium 3.9 mmol/L (3.5-5.1); Protein, Total 7.7 g/dL (6.4-8.2); Sodium Level 138 mmol/L (136-145); T4 Free Direct 0.95 ng/dL (0.76-1.46); Thyroid Stim Hormone (TSH) 1.07 uIU/mL (0.358-3.74); Triglycerides 131 mg/dL; Very Low Density Lipoprotein 26 mg/dL (5-40)
== END ==
PROVIDERS: PCP Family Medicine; Referring Provider Family Medicine; Visit Provider Family Medicine
DX: Z00.00 Encounter for general adult medical examination without abnormal findings (principal); E55.9 Vitamin D deficiency, unspecified; R53.83 Other fatigue; E53.8 Deficiency of other specified B group vitamins
CPT/HCPCS: 36415; 80053; 80061; 82306; 82533; 82607; 84439; 84443; 84481

== ENCOUNTER → 2020-08-23 10:15 | Outpatient (CLI) | payer OTHER, SELFPAY ==
[2020-07-20 07:58] VITALS: BMI 39.4
[2020-08-26 11:32] LABS: HPV APTIMA, High Risk Negative (Negative)
== END ==
PROVIDERS: PCP Family Medicine; Visit Provider Obstetrics & Gynecology
DX: Z12.4 Encounter for screening for malignant neoplasm of cervix (principal)
CPT/HCPCS: 87624; 88175; G0145

== ENCOUNTER → 2020-11-23 11:00 | Outpatient (CLI) | payer OTHER, SELFPAY ==
[2020-10-21 08:20] VITALS: BMI 41.5
== END ==
PROVIDERS: PCP Family Medicine; Visit Provider Nurse Practitioner Acute Care
DX: G47.33 Obstructive sleep apnea (adult) (pediatric) (principal)
CPT/HCPCS: 98960; G0463

== ENCOUNTER → 2021-02-10 10:01 | Outpatient (CLI) | payer OTHER, SELFPAY ==
[2020-10-21 08:20] VITALS: BMI 41.5
[2021-02-10 12:57] LABS: ALB/GLOB Ratio 0.9 RATIO (0.9-2.4); AST(SGOT) 21 U/L (15-37); Alanine Aminotransfer ALT/SGPT 26 U/L (13-56); Albumin, Serum 3.5 g/dL (3.2-5.0); Alkaline Phosphatase 71 U/L (45-117); Anion Gap 4 (5-15); BUN 11 mg/dL (7-18); BUN/Creat Ratio 17.9 RATIO (10-20); Chloride 108 mmol/L (98-107); Cholesterol 172 mg/dL (200); Creatinine, Serum 0.61 mg/dL (0.55-1.02); EST Glomerular Filtration Rate 116 mL/min (>60); Est Glom Filt Rate - Afr Amer 140 mL/min (>60); Globulin 4.1 g/dL (2.2-4.2); Glucose 87 mg/dL (74-106); High Density Lipoprotein 40 mg/dL; Protein, Total 7.6 g/dL (6.4-8.2); Sodium Level 137 mmol/L (136-145); Triglycerides 155 mg/dL; Very Low Density Lipoprotein 31 mg/dL (5-40)
[2021-02-10 13:04] LABS: Vitamin B12 574 pg/mL (211-911); Vitamin D,25 Hydroxy 36.9 ng/mL
== END ==
PROVIDERS: PCP Family Medicine; Referring Provider Family Medicine; Visit Provider Family Medicine
DX: E55.9 Vitamin D deficiency, unspecified (principal); E53.8 Deficiency of other specified B group vitamins; E78.5 Hyperlipidemia, unspecified
CPT/HCPCS: 36415; 80053; 80061; 82306; 82607

== ENCOUNTER 2021-03-01 14:22 | Outpatient (RCR) | payer OTHER, SELFPAY ==
[2020-10-21 08:20] VITALS: BMI 41.5
== END 2021-03-16 23:59 ==
LOC: NS 14:22
PROVIDERS: PCP Family Medicine; Visit Provider Family Medicine
DX: Z71.3 Dietary counseling and surveillance (principal); E66.9 Obesity, unspecified; Z68.41 Body mass index [BMI] 40.0-44.9, adult
CPT/HCPCS: 97802

== ENCOUNTER 2021-04-06 14:08 | Outpatient (RCR) | payer OTHER, SELFPAY ==
[2020-10-21 08:20] VITALS: BMI 41.5
== END 2021-04-16 23:59 ==
LOC: NS 14:08
PROVIDERS: PCP Family Medicine; Visit Provider Family Medicine
DX: E66.9 Obesity, unspecified (principal); Z68.41 Body mass index [BMI] 40.0-44.9, adult
CPT/HCPCS: 97803

== ENCOUNTER 2021-07-11 09:11 | Emergency (ER) | payer OTHER, SELFPAY ==
[2021-07-11 09:12] VITALS: BP 105/84; PULSE 86; RESP 16; TEMP 36.4; O2SAT 94; BMI 42.0
--- NOTE | 2021-07-11 09:40 | CT_ITS ---
STUDY: CT ABDOMEN AND PELVIS WITH CONTRAST REASON FOR EXAM: Female, 41 years old. Left upper quadrant pain. Vomiting and diarrhea. RADIATION DOSAGE (If Supplied By Facility): CTDIvol = ( 16.87 ) mGy, DLP = ( 1346.78 ) mGycm TECHNIQUE: Transaxial images were obtained from the dome of the diaphragm to the symphysis pubis with oral contrast. Oral and amp; IV Gastrografin and amp; 100mL Isovue-300 was administered. Sagittal and coronal images were reconstructed. Individualized dose optimization techniques were used for this CT. COMPARISON: None. FINDINGS: Mild degree of linear bibasilar atelectasis. The visualized portions of the heart are within normal limits. There is decreased attenuation of the liver consistent with steatosis. The patient is status post cholecystectomy. Normal spleen. There is a 3 cm x 2.9 cm cystic density in the tail of the pancreas. Normal bilateral adrenal glands. Normal right kidney. Normal left kidney. Normal visualized stomach. Normal small intestine. Normal colon. The appendix is visualized and appears normal. Normal abdominal aorta. Normal inferior vena cava. Normal retroperitoneum. Normal urinary bladder. Small bilateral inguinal hernias containing fat. Normal osseous structures. CT/Abdomen/Pelvis WITH Contrast IMPRESSION: 3 cm x 2.9 cm cyst in the tail portion of the pancreas. This may represent a cyst adenoma. Small fat-containing bilateral inguinal hernias. Electronically Signed: Sami Orellana MD at 11:42 EDT , Service support ,
--- NOTE | 2021-07-11 09:50 | ED.VIS.GI ---
HPI HPI - GI History of Present Illness Chief Complaint: Abd Pain Informant: patient Abdominal Pain/Flank Pain Onset: Yesterday Context: Gradual Onset Timing: Continuous Quality: Aching Location: LUQ Worsened by: Movement and - (Standing) Relieved by: - (Splinting) Nausea/Vomiting/Emesis GI Symptom: Positive for Nausea and Vomiting Quality: Negative for Coffee ground and Hematemesis Diarrhea/Melena/Hematochezia GI Symptom: Positive for Diarrhea; Negative for Melena and Hematochezia Associated Symptoms Associated Symptoms: Negative for Dysuria, Frequency and Hematuria Narrative Narrative: Patient presents with left upper quadrant abdominal pain that began yesterday. Patient states it has gradually gotten worse. Patient describes it as aching. Patient states the pain is worse with any movement or standing. Patient states the pain is better when she splints her abdomen with pressure and a blanket. Patient admits to some nausea and vomiting. Patient denies any hematemesis or coffee-ground emesis. Patient admits to some diarrhea but denies any melena or hematochezia. Patient states her pain is localized to the left upper quadrant. Patient denies any fevers or chills. Patient denies any urinary complaints. [facility] Medical History (Updated 07/11/21 @ 13:[address] Aurelio Babin, ) Acid reflux Anxiety Bronchitis Depression Diarrhea Fatigue Generalized anxiety disorder Hemorrhoids HLD (hyperlipidemia) Hypercholesteremia Major depressive disorder, recurrent severe without psychotic features Pneumonia Vitamin D deficiency Home Medications multivitamin with folic acid 1 tab PO DAILY 06/08/16 [History Last Taken Unknown] atorvastatin 20 mg tablet 20 mg PO QHS 07/20/20 [History Last Taken Unknown] cholecalciferol (vitamin D3) 125 mcg (5,000 unit) tablet 2,000 unit PO DAILY tab 07/20/20 [History Last Taken Unknown] escitalopram oxalate 10 mg tablet 10 mg PO DAILY 07/20/20 [History Last Taken Unknown] sertraline 50 mg tablet 75 mg PO QHS tab 07/20/20 [History Last Taken Unknown] hydrocodone-acetaminophen 1 tab PO Q6H PRN PRN 3 Days #10 tablet 07/11/21 [Rx Last Taken Unknown] Allergy/AdvReac Type Severity Reaction Status Date / Time No Known Allergies Allergy Verified 07/11/21 09:15 Family History Father Colon cancer, Onset Age: 58 Hypertension Pulmonary fibrosis Emphysema lung BPH (benign prostatic hyperplasia) Sleep apnea Mother High cholesterol Depression Osteoporosis DVT (deep venous thrombosis) Sister Asthma HLD (hyperlipidemia) Depression Surgical History Hx of cholecystectomy Hx of dilation and curettage Hx of LASIK Hx of tonsillectomy Social History Smoking Status: Never smoker alcohol intake: never substance use type: does not use caffeine: Yes what type of physical activity do you participate in: none frequency: does not exercise seatbelt use: always ROS ROS ED Constitutional Constitutional ED: Denies chills or fever(s) Eyes Eyes: Denies blurry vision or change in vision ENT ENT ED: Denies rhinorrhea or sore throat Cardiovascular Cardiovascular: Denies chest pain or palpitations Respiratory/Chest Respiratory/Chest: Denies cough or dyspnea Gastrointestinal Gastrointestinal: Reports abdominal pain, diarrhea, nausea and vomiting Genitourinary Genitourinary ED: Denies dysuria or hematuria Musculoskeletal Musculoskeletal: Denies back pain or neck pain Integumentary Denies abscess or rash Neurologic Neurologic: Denies headache(s) or weakness Allergic/Immunologic Allergic/Immunologic ED: Denies mouth swelling or urticaria EXAM Physical Exam Const Vital Signs: 07/11/21 09:12 07/11/21 12:51 Temperature 97.6 F L Temperature Source Temporal Pulse Rate 86 75 Respiratory Rate 16 16 Blood Pressure 105/84 H 127/59 H Blood Pressure Mean 91 81 Pulse Ox 94 97 Oxygen Delivery Method Room Air Room Air Positive well nourished, well developed and obese General Appearance ED: well developed Nutritional Appearance: obese HEENT Reports moist mucous membranes Neck supple and no JVD Resp normal respiratory effort and clear to auscultation bilaterally Cardio regular rate, regular rhythm and no murmurs GI normal to inspection, nondistended, normoactive bowel sounds and non-distended Palpation: soft and tender LUQ; Negative for guarding or rebound tenderness present Extremity normal to inspection General Extremety ED: Negative for edema or tenderness General Extremity: Negative for edema Neuro oriented x3, CN's II-XII intact bilaterally, moves all extremities and no sensory deficits noted Sensorium / Orientation: alert Motor Exam: strength 5/5 throughout Psych mental status grossly normal Skin no rashes or lesions noted MDM MDM MDM Narrative Medical decision making narrative: Patient was given IV fluids, morphine, and Zofran. CBC shows a mild leukocytosis of 13.3. Comprehensive metabolic profile was within normal limits. Lipase was normal. Urinalysis does not show any evidence of urinary tract infection. CT scan of the abdomen pelvis was obtained. There is a 3 x 3 cm cyst in the tail of the pancreas. This may represent cystadenoma. This was interpreted by the radiologist and reviewed by myself. Patient was given a prescription for a short course of [place]. Patient was instructed to follow-up with her primary care physician in 3 to 5 days. Patient understood and was agreeable with the plan. All questions were answered. Lab Data Attestation: I reviewed the patient's lab results. Labs: Laboratory Results - last 24 hr 07/11/21 07/11/21 07/11/21 09:59 10:11 10:11 WBC 13.3 H RBC 4.94 Hgb 13.8 Hct 41.7 MCV 84.4 MCH 27.9 MCHC 33.1 RDW Std Deviation 38.2 RDW Coeff of [place] 12.6 Plt Count 292 MPV 9.6 Immature Gran % (Auto) 0.300 Neut % (Auto) 80.4 H Lymph % (Auto) 13.5 L [place] % (Auto) 5.3 Eos % (Auto) 0.2 Baso % (Auto) 0.3 Absolute Neuts (auto) 10.7 H Absolute Lymphs (auto) 1.79 Nucleated RBC % 0 Sodium 138 Potassium 3.8 Chloride 105 Carbon Dioxide 26.0 Anion Gap 7 BUN 9 Creatinine 0.65 Estim Creat Clear Calc 91.90 Est GFR (MDRD) Af Amer 131 Est GFR (MDRD) Non-Af 109 BUN/Creatinine Ratio 13.9 Glucose 122 H Calcium 9.4 Total Bilirubin 0.50 AST 21 ALT 40 Alkaline Phosphatase 86 Total Protein 7.9 Albumin 3.5 Globulin 4.4 H Albumin/Globulin Ratio 0.8 L Lipase 218 Urine Color Yellow Urine Clarity Sl. Cloudy Urine pH 5.0 Ur Specific [place] 1.025 Urine Protein 15 H Urine Glucose (UA) Normal Urine Ketones 5 H Urine Occult Blood 25 H Urine Nitrite Negative Urine Bilirubin Negative Urine Urobilinogen Normal Ur Leukocyte Esterase Negative Urine RBC 0-5 SEEN Urine WBC 0 SEEN Ur Squamous Epith Cells 5-10 SEEN Urine Bacteria 1+ Urine Mucus 0 SEEN Radiography Diagnostic Testing: Clinical Impression(s) from Imaging Studies Abdomen/Pelvis CT 07/11/21 09:40 IMPRESSION: 3 cm x 2.9 cm cyst in the tail portion of the pancreas. This may represent a cyst adenoma. Small fat-containing bilateral inguinal hernias. Electronically Signed: Sami Orellana MD at 11:42 EDT , Service support , Discharge Plan Triage Chief Complaint: Abd Pain ED Provider: Aurelio Babin Dx/Rx/DC Orders Clinical Impression: Abdominal pain in female, Pancreatic cyst Instructions: ED Abdominal Pain Unkn Cause Fem Prescriptions: New hydrocodone-acetaminophen [hydrocodone-acetaminophen] 1 TABLET tablet 1 tab PO Q6H PRN PRN (Reason: Pain) 3 Days Qty: 10 RF: 0 No Action sertraline [Zoloft] 50 mg tablet 75 mg PO QHS RF: 0 escitalopram oxalate [Lexapro] 10 mg tablet 10 mg PO DAILY RF: 0 atorvastatin [Lipitor] 20 mg tablet 20 mg PO QHS RF: 0 multivitamin with folic acid 1 TABLET tablet 1 tab PO DAILY RF: 0 cholecalciferol (vitamin D3) 125 mcg (5,000 unit) tablet 2,000 unit PO DAILY RF: 0 Primary Care Provider: Filipe Beal Referrals: Filipe Beal MD [Primary Care Provider] - 3-5 Days Disposition Disposition: Home, Self Care
[2021-07-11] MEDS: Ondansetron 4 MG/2 ML Vial IV (10:02)
[2021-07-11] MEDS: 0.9% Normal Saline 1,000 ML 1000 ML IV (10:03)
[2021-07-11] MEDS: Morphine 4 MG/ML Syringe IV (10:03)
[2021-07-11 10:19] LABS: Mucous, Urine 0 SEEN /hpf (<or=2+); White Blood Cells 0 SEEN /hpf (0-5)
[2021-07-11 10:21] LABS: Color, Urine Yellow (Yellow); Glucose, Dipstick Normal (Normal); Ketone-Dipstick 5 mg/dl (Negative); Leukocyte Esterase-Dipstick Negative /ul (Negative); Nitrite-Dipstick Negative (Negative); Occult Blood-Urine 25 /ul (Negative); Protein-Dipstick 15 mg/dl (Negative); Specific Gravity, Urine 1.025 (1.002-1.030); Urine Bilirubin Dipstick Negative (Negative); Urine Clarity Sl. Cloudy (Clear); Urine Urobilinogen Normal (Normal)
[2021-07-11 10:23] LABS: Absolute Lymphocyte Count 1.79 X10^3/uL (0.83-4.51); Absolute Neutrophil Count 10.7 X10^3/uL (2.0-7.7); Basophil# 0.04 X10^3/uL; Basophil% 0.3 % (0-1); Eosinophil# 0.03 X10^3/uL; Eosinophils% 0.2 % (0-5); Hematocrit 41.7 % (37-47); Hemoglobin 13.8 g/dL (12.0-15.0); Lymphocyte # 1.79 X10^3/ul (0.83-4.51); Lymphocyte % 13.5 % (19-41); Mean Corp Hgb Conc 33.1 g/dL (32-36); Mean Corpuscular Hgb 27.9 pg (27.0-32.0); Mean Corpuscular Volume 84.4 fL (81-99); Mean Platelet Vol. 9.6 fl (6.2-12.0); Monocyte% 5.3 % (0-10); NRBC Flagged by Analyzer 0 % (0-5); Neutrophil # 10.65 X10^3/uL (2.7-7.7); Neutrophil % 80.4 % (47-70); Platelet Count 292 K/mm3 (150-450); RBC Distribution Width CV 12.6 % (11.6-14.6); RBC Distribution Width SD 38.2 fl (35.1-43.9); Red Blood Count 4.94 M/mm3 (4.2-5.4); White Blood Count 13.3 K/mm3 (4.4-11.0)
[2021-07-11 10:29] LABS: Bacteria 1+ /hpf (None Seen); Red Blood Cells-Urine 0-5 SEEN /hpf (0-5); Squamous Epithelial Cells - UA 5-10 SEEN /hpf (5-10)
[2021-07-11 10:37] LABS: ALB/GLOB Ratio 0.8 RATIO (0.9-2.4); AST(SGOT) 21 U/L (15-37); Alanine Aminotransfer ALT/SGPT 40 U/L (13-56); Albumin, Serum 3.5 g/dL (3.2-5.0); Alkaline Phosphatase 86 U/L (45-117); Anion Gap 7 (5-15); BUN 9 mg/dL (7-18); BUN/Creat Ratio 13.9 RATIO (10-20); Calcium,Total 9.4 mg/dL (8.5-10.1); Chloride 105 mmol/L (98-107); Creatinine, Serum 0.65 mg/dL (0.55-1.02); EST Glomerular Filtration Rate 109 mL/min (>60); Est Glom Filt Rate - Afr Amer 131 mL/min (>60); Globulin 4.4 g/dL (2.2-4.2); Glucose 122 mg/dL (74-106); Lipase 218 U/L (73-393); Potassium 3.8 mmol/L (3.5-5.1); Protein, Total 7.9 g/dL (6.4-8.2); Sodium Level 138 mmol/L (136-145)
[2021-07-11 12:51] VITALS: BP 127/59; PULSE 75; RESP 16; O2SAT 97
== END 2021-07-11 13:15 | disposition home or self-care (01) ==
PROVIDERS: Emergency Provider Emergency Medicine; PCP Family Medicine
DX: R10.12 Left upper quadrant pain (principal); K86.2 Cyst of pancreas; E66.9 Obesity, unspecified; E78.00 Pure hypercholesterolemia, unspecified; E78.5 Hyperlipidemia, unspecified; F33.2 Major depressive disorder, recurrent severe without psychotic features; F41.1 Generalized anxiety disorder; Z79.899 Other long term (current) drug therapy
CPT/HCPCS: 74177; 80053; 81001; 83690; 85025; 87426; 96361; 96374; 96375; 99283; J7030; Q9967; J2405

== ENCOUNTER → 2021-07-13 11:41 | Outpatient (CLI) | payer OTHER, SELFPAY ==
[2021-07-13 15:19] LABS: Hematocrit 44.3 % (37-47); Hemoglobin 14.3 g/dL (12.0-15.0); Mean Corp Hgb Conc 32.3 g/dL (32-36); Mean Corpuscular Hgb 27.6 pg (27.0-32.0); Mean Corpuscular Volume 85.5 fL (81-99); Mean Platelet Vol. 10.3 fl (6.2-12.0); Platelet Count 324 K/mm3 (150-450); RBC Distribution Width CV 12.7 % (11.6-14.6); RBC Distribution Width SD 39.3 fl (35.1-43.9); Red Blood Count 5.18 M/mm3 (4.2-5.4); White Blood Count 12.3 K/mm3 (4.4-11.0)
[2021-07-20 14:57] LABS: H. PYLORI STOOL AG Positive (Negative)
== END ==
PROVIDERS: PCP Family Medicine; Referring Provider Nurse Practitioner Family; Visit Provider Nurse Practitioner Family
DX: R19.7 Diarrhea, unspecified (principal)
CPT/HCPCS: 36415; 85027; 87177; 87209; 87493

== ENCOUNTER → 2021-07-27 06:46 | Outpatient (CLI) | payer OTHER, SELFPAY ==
[2021-07-27 08:22] LABS: ALB/GLOB Ratio 0.8 RATIO (0.9-2.4); AST(SGOT) 25 U/L (15-37); Alanine Aminotransfer ALT/SGPT 33 U/L (13-56); Albumin, Serum 3.4 g/dL (3.2-5.0); Alkaline Phosphatase 92 U/L (45-117); Anion Gap 5 (5-15); BUN 15 mg/dL (7-18); BUN/Creat Ratio 20.3 RATIO (10-20); Calcium,Total 9.2 mg/dL (8.5-10.1); Chloride 106 mmol/L (98-107); Creatinine, Serum 0.74 mg/dL (0.55-1.02); EST Glomerular Filtration Rate 93 mL/min (>60); Est Glom Filt Rate - Afr Amer 112 mL/min (>60); Globulin 4.3 g/dL (2.2-4.2); Glucose 104 mg/dL (74-106); Potassium 3.9 mmol/L (3.5-5.1); Protein, Total 7.7 g/dL (6.4-8.2); Sodium Level 137 mmol/L (136-145)
[2021-07-28 17:09] LABS: Carbohydrate AG 19-9 19 U/mL (0-35)
== END ==
PROVIDERS: PCP Family Medicine; Referring Provider Internal Medicine Gastroenterology; Visit Provider Internal Medicine Gastroenterology
DX: K86.2 Cyst of pancreas (principal)
CPT/HCPCS: 36415; 80053; 86301

== ENCOUNTER → 2021-09-06 10:59 | Outpatient (CLI) | payer OTHER, SELFPAY ==
--- NOTE | 2021-09-06 11:55 | MRI_ITS ---
STUDY: MRI ABDOMEN WITH AND WITHOUT CONTRAST REASON FOR EXAM: Female, 41 years old. CYST OF PANCREAS TECHNIQUE: Standardized fat and water weighted pulse sequences were obtained in all 3 orthogonal planes post contrast administration. IV 20ml Dotarem was administered for the contrast portion of the examination. COMPARISON: CT abdomen and pelvis dated 07/11/2021 FINDINGS: The visualized lung bases are unremarkable. The visualized portions of the heart are within normal limits. Normal liver. There is non-visualization of the gallbladder, which may be secondary to either contraction or a prior cholecystectomy. Normal spleen. There is a well-defined nonenhancing cyst measuring 1.8 x 1.3 cm. Otherwise, unremarkable pancreatic tissue Normal bilateral adrenal glands. Normal right kidney. Normal left kidney. Normal visualized stomach. Normal appearance of the visualized small and large bowel. No concerning lymphadenopathy Normal abdominal wall. Normal osseous structures. MRI/MRI Abd WITH and W/O Contrast IMPRESSION: Well-defined and nonenhancing pancreatic cyst. Remainder of the pancreatic tissue is within normal limits. Nonvisualized gallbladder. Electronically Signed: Allan Vásquez DO at 6:55 EST Tel , Service support ,
== END ==
PROVIDERS: PCP Family Medicine; Referring Provider Internal Medicine Gastroenterology; Visit Provider Internal Medicine Gastroenterology
DX: K86.2 Cyst of pancreas (principal)
CPT/HCPCS: 74183; A9575

== ENCOUNTER → 2022-11-02 | Outpatient (CLI) | payer OTHER, SELFPAY ==
--- NOTE | 2022-11-02 12:10 | BI_ITS ---
MAMMOGRAPHY - BILATERAL SCREENING REASON FOR EXAM: Female, 42 years old. Routine annual screening examination. PERTINENT HISTORY: Aunt with breast cancer. TECHNIQUE: Digital bilateral breast pily (3D mammographic acquisition) in the CC and MLO projections. 2-D mediolateral oblique (MLO) and craniocaudad (CC) views of both breasts were obtained. CAD: Full Field Digital Mammography with Computer Added Detection was performed. COMPARISON: None. Baseline examination. FINDINGS: Breast Composition: There are scattered areas of fibroglandular density. There are no dominant masses or suspicious calcifications. No other significant abnormalities are identified. BI/SCRN MAMM (CAD)W/PILY BILAT IMPRESSION: Negative screening mammogram. Yearly followup mammogram recommended. (A) ASSESSMENT CATEGORY: BIRADS Category 1: Negative. A letter regarding these results will be sent to the patient by the facility within 30 days. Approximately 10% of breast cancers are not detected by mammography. A normal mammogram should not delay biopsy of a clinically suspicious abnormality. [id number] Electronically Signed: Sami Orellana MD at 16:59 EST ,
== END | disposition home or self-care (01) ==
LOC: OPBI 12:09
PROVIDERS: PCP Family Medicine; Referring Provider Obstetrics & Gynecology; Visit Provider Obstetrics & Gynecology
DX: Z12.31 Encounter for screening mammogram for malignant neoplasm of breast (principal)
CPT/HCPCS: 77063; 77067

== ENCOUNTER → 2023-11-15 | Outpatient (CLI) | payer OTHER, SELFPAY ==
--- NOTE | 2023-11-15 10:05 | BI_ITS ---
MAMMOGRAPHY - BILATERAL SCREENING REASON FOR EXAM: Female, 43 years old. Routine annual screening examination. PERTINENT HISTORY: Aunt with breast cancer. TECHNIQUE: Digital bilateral breast pily (3D mammographic acquisition) in the CC and MLO projections. 2-D mediolateral oblique (MLO) and craniocaudad (CC) views of both breasts were obtained. CAD: Full Field Digital Mammography with Computer Added Detection was performed. COMPARISON: Comparison is made with prior study dated November 02, 2022. FINDINGS: Breast Composition: There are scattered areas of fibroglandular density. There are no dominant masses or suspicious calcifications. No other significant abnormalities are identified. There has been no significant change since the prior study. BI/SCRN MAMM (CAD)W/PILY BILAT IMPRESSION: Stable bilateral screening mammogram. Yearly follow-up mammogram recommended. (A) ASSESSMENT CATEGORY: BIRADS Category 1: Negative. A letter regarding these results will be sent to the patient by the facility within 30 days. Approximately 10% of breast cancers are not detected by mammography. A normal mammogram should not delay biopsy of a clinically suspicious abnormality. [id number] Electronically Signed: Sami Orellana MD at 10:45 EST ,
== END | disposition home or self-care (01) ==
LOC: OPBI 10:05
PROVIDERS: PCP Family Medicine; Referring Provider Family Medicine; Visit Provider Family Medicine
DX: Z12.31 Encounter for screening mammogram for malignant neoplasm of breast (principal); Z80.3 Family history of malignant neoplasm of breast
CPT/HCPCS: 77063; 77067

== ENCOUNTER → 2024-02-27 | Outpatient (CLI) | payer OTHER, SELFPAY | END | disposition home or self-care (01) | LOC: LABSPEC 13:39 | PROVIDERS: PCP Family Medicine; Visit Provider Family Medicine | DX: R19.7 Diarrhea, unspecified (principal) | CPT/HCPCS: 87177; 87209; 87493 ==

== ENCOUNTER → 2024-09-04 | Outpatient (CLI) | payer OTHER, SELFPAY ==
[2024-09-04 17:33] LABS: Hematocrit 41.2 % (37-47); Hemoglobin 13.3 g/dL (12.0-15.0); Mean Corp Hgb Conc 32.3 g/dL (32-36); Mean Corpuscular Volume 83.7 fL (81-99); Mean Platelet Vol. 10.3 fl (6.2-12.0); Platelet Count 308 K/mm3 (150-450); RBC Distribution Width SD 39.3 fl (35.1-43.9); Red Blood Count 4.92 M/mm3 (4.2-5.4); White Blood Count 9.3 K/mm3 (4.4-11.0)
[2024-09-04 18:03] LABS: Anion Gap 5 (5-15); BUN 14 mg/dL (7-18); BUN/Creat Ratio 22.8 RATIO (10-20); Chloride 105 mmol/L (98-107); Creatinine, Serum 0.61 mg/dL (0.55-1.02); EST Glomerular Filtration Rate 113 mL/min (>60); Est Glom Filt Rate - Afr Amer 137 mL/min (>60); Glucose 81 mg/dL (74-106); Magnesium 2.2 mg/dL (1.6-2.6); Sodium Level 137 mmol/L (136-145)
== END | disposition home or self-care (01) ==
LOC: MFPLAB 13:49
PROVIDERS: PCP Family Medicine; Referring Provider Family Medicine; Visit Provider Family Medicine
DX: R00.2 Palpitations (principal)
CPT/HCPCS: 36415; 80048; 83735; 84443; 85027

== ENCOUNTER → 2024-09-26 | Outpatient (CLI) | payer OTHER, SELFPAY ==
--- NOTE | 2024-09-26 08:45 | RAD_ITS ---
STUDY: X-RAY - LUMBOSACRAL SPINE REASON FOR EXAM: Female, 44 years old. ow back pain, worsens throughout the day, NKI TECHNIQUE: 6 view(s) of the lumbosacral spine were obtained. COMPARISON: CT of abdomen and pelvis dated July 11, 2021 FINDINGS: Normal lumbar lordosis. Minimal dextroscoliosis is present. No visualized fracture or compression.. There is normal alignment of the vertebrae. Normal vertebral bodies and endplates. Mild disc space narrowing is present at L4-L5 and L5-S1. Normal bilateral sacral ala, sacroiliac joints, and visualized sacrum. Normal visualized soft tissue structures. RAD/L/S Spine w Bend Min 6 Vw IMPRESSION: Minimal disc space narrowing. Electronically Signed: Robson Del Rosario MD at 14:06 EST ,
== END | disposition home or self-care (01) ==
LOC: RAD 08:24
PROVIDERS: PCP Family Medicine; Referring Provider Family Medicine; Visit Provider Family Medicine
DX: M54.50 Low back pain, unspecified (principal)

== ENCOUNTER 2024-11-13 10:00 | Outpatient (RCR) | payer OTHER, SELFPAY ==
--- NOTE | 2024-09-29 15:26 | HP.PTEVAL_ITS ---
Patient's Visit Information Visit Information Visit Information: ARELIS RAMIREZ is a 44 year old F referred to Physical Therapy by Dr. Selwyn Beal MD with a diagnosis of LBP. Date of Evaluation: 09/29/24 Physical Therapist: Aurelio Godoy, DPT, OCS, CSCS Visit Plan Frequency: 2x /Week Duration: 4-6 Weeks Plan: 2x/week for 4-6 week(start 3) for... IE HEP PPU and trunk rotation 10x 3x/day, posture and body mechanics reviewed with pics. Return to work possibly reviewed. treat with PA mobs , Lumbar ROM remodelling exercises all directions. HS stretch and rollout as needed to HEP. core strength mat to HEP general core, hip , postural and LE strength to gym program as tolerated. body mechanics lifting. Subjective Subjective: Last September started LBP and chiropractic and rest helped, Insidious onset. Was good all year. 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 Was OK for a month but woke up on 09/16 and hard to get out of bed Pain in LB with each movement. could lie short duration comfortably. Went to work that day after taking alleve and pushed through it on 09/16 adn 09/17. Sitting was OK and standing and walking hurt. Currently is a little better. Has not returned to work, has had 5 days off. Did some chores around house after resting and was hurting again. Was on prednisone and it did not help at all. sleep is not bad. Morning is stiff in LB. Walking is worse. TM at home has made it worse walking slow pace. Got a little easier with time in walking. Just started TM this year, no other regualr execises other than walking with dog. Basic ADLs, shower dressing bathroom is good, hard to bend in am to put socks on. Objective Objective: Walks into PT I with good gait pattern, trasnfers chair easily, bed slightly painful with shear forces. Posture is forward head and kyphotic t/s but increased lordosis in lower L/S. Tender to PA pressure L345 centrally. Slightly tender with R paraspinals in this same area. HS -30 90/90 test but - SLR and slump, psoas also min tight. Lumbar AROM ext painful and min limited, flexion mod limited and painful, SB are OK B. reflexes 2/3 patella and achilles B sensation LE WNL to gross light touch B. strength in hips is 3+ abd and ext and 4- flexion. core is 3+ flexion and extension. knees 4+/5, ankles 4/5 .All B. repeated ext seems to help with ROM. Balance/Special Test Scores Oswestry Low Back Score: 12 Goals Goal 1:: Sleep adn transition in bed without pain. Goal Time Frame: 2-4 Weeks Goal 2:: Pain 0-1/10 at most and 95% better Goal Time Frame: 4-6 Weeks Goal 3:: Pt will be I in appropriate HEP and gym to minimize future problems Goal Time Frame: 4-6 Weeks Goal 4:: back oswestry score 4 or better Goal Time Frame: 4-6 Weeks Rehabilitation Potential Physical Therapy Diagnosis: back pain limiting work and function. Rehabilitation Potential: Good Anticipated Interventions Patient/Client Instruction: Educate patient on: Condition and Risk Factors For the Purpose of:: To decrease pain, To increase ROM, To improve nutrient delivery to tissue and To increase tolerance to activity/condition/position Therapeutic Exercise to Include: Strength training, Postural training, Flexibilty training, Passive ROM and Active ROM For the Purpose of:: To decrease pain, To increase ROM, To improve nutrient delivery to tissue, To improve muscle performance and motor function, To increase tolerance to activity/condition/position and To improve ability of physical actions for home/community/work/leisure Manual Therapy Techniques to Include: Mobilization, Passive ROM and Soft tissue mobilization For the Purpose of:: To decrease pain, To increase ROM and To improve nutrient delivery to tissue Text: Thank you for the opportunity to evaluate your patient. For Medicare and Medicare HMO plans, please review the plan of care and approve it. It will need to be FAXED BACK to us at [phone] for Medicare purposes. For Medicare only, by signing this I certify the plan of care. Please let me know if there are questions or concerns regarding this plan of care. Physician Signature: Date:
--- NOTE | 2024-11-13 10:51 | HP.PTDCSUM_ITS ---
Discharge Summary D/C summary: It has been my pleasure to treat ARELIS RAMIREZ referred by Dr. Selwyn Beal MD, with the diagnosis of LBP for a total of 12 visit(s). Discharge Date: 11/13/24 Please see the following information for a summary of their discharge status. Subjective Subjective: Better. used to just do cardio but has learned the machines. Workout in gym and will continue at [facility] in [place]. HEP:PPU. Pain lately is nonexistent lately. If works two days in a row feels sore in LB the next day but manageable with stretches. Knows body mechanics and focusses on them. Sleeping OK. No pain in a while. To doctor in December. Pain LBP: Pain Intensity (Out of 10): 0 Overall Improvement % Improvement: 95 Objective Objective/Function: L/s ext and flexion full and without pain, SB is full. Body mechanics lifting stool is good today with weight close to body adn straigh t back bending at knees and hips. Moving well in chair and with ambulation. Doing very well and no concerns. Will continue chriropractic as needed and f/u with Lian at appointed time. To continue at gym 3x/week adn with HEP daily until then. Goals Goal 1:: Sleep adn transition in bed without pain. Goal Progress: Goal Met Goal 2:: Pain 0-1/10 at most and 95% better Goal Progress: 95% Goal 3:: Pt will be I in appropriate HEP and gym to minimize future problems Goal Progress: Goal Met Goal 4:: back oswestry score 4 or better Goal Progress: Goal Met Goal 5:: exhibit proper body mechanics moving weights on table Goal Progress: Goal Met Goal 6:: Full aROM Lumbar spine without pain or hesitation Goal Progress: Goal Met Plan Plan: continue 2x/week for 3 weeks for 1. PA mobs L/S, progressive extension ROM, and start remodelling flexion ex. 2. gym based strength to I gym program with list 3. body mechanics insturct please. ice as needed. D/C Information d/c sentence: If there are questions or concerns regarding this patient's physical therapy, please feel free to call me at [phone]. Thank you for the referral of this patient. Sincerely, Aurelio Godoy, DPT, OCS, CSCS Balance/Gait/Functional tests Balance/Special Test Scores Oswestry Low Back Score: 1 Improvement % Improvement: 95
== END 2024-11-13 12:11 | disposition home or self-care (01) ==
LOC: PT 10:00
PROVIDERS: PCP Family Medicine; Referring Provider Family Medicine; Visit Provider Family Medicine
DX: M54.50 Low back pain, unspecified (principal)
CPT/HCPCS: 97110; 97161; 97530

== ENCOUNTER → 2024-12-26 | Outpatient (CLI) | payer OTHER, SELFPAY ==
[2024-12-26 10:12] LABS: Mucous, Urine 0 SEEN /hpf (<or=2+); Red Blood Cells-Urine 0 SEEN /hpf (0-5)
[2024-12-26 10:58] LABS: Color, Urine Yellow (Yellow); Glucose, Dipstick Normal (Normal); Ketone-Dipstick Negative (Negative); Leukocyte Esterase-Dipstick 500 /ul (Negative); Nitrite-Dipstick Positive (Negative); Occult Blood-Urine 250 /ul (Negative); Protein-Dipstick 100 mg/dl (Negative); Urine Bilirubin Dipstick Negative (Negative); Urine Clarity Sl. Cloudy (Clear); Urine Urobilinogen Normal (Normal)
[2024-12-26 11:04] LABS: Bacteria 2+ /hpf (None Seen); Squamous Epithelial Cells - UA 0-5 SEEN /hpf (5-10); White Blood Cells >100 SEEN /hpf (0-5)
== END | disposition home or self-care (01) ==
LOC: LAB 10:06
PROVIDERS: PCP Family Medicine; Referring Provider Family Medicine; Visit Provider Family Medicine
DX: R39.9 Unspecified symptoms and signs involving the genitourinary system (principal)
CPT/HCPCS: 81001; 87086; 87186

== ENCOUNTER → 2025-02-26 | Outpatient (CLI) | payer OTHER, SELFPAY ==
--- NOTE | 2025-02-26 14:29 | BI_ITS ---
EXAM: SCRN MAMM (CAD)W/PILY BILAT DATE: 02/26/2025 CLINICAL HISTORY: F, Age 44 y/o , SCREENING Aunt with breast cancer. BREAST CANCER RISK ASSESSMENT: Not assessed. TECHNIQUE: Bilateral screening digital breast tomosynthesis with 2D and 3D images. Computer aided detection. COMPARISON: Prior exam(s) dated November 15, 2023.. FINDINGS: TISSUE DENSITY: The breast tissue is almost entirely fatty. Bilateral Breast Mammographic Findings: No significant masses, calcifications or other abnormalities are identified. No suspicious masses, areas of developing architectural distortion, or suspicious calcifications. There has been no significant interval change. BI/SCRN MAMM (CAD)W/PILY BILAT IMPRESSION: OVERALL FINAL ASSESSMENT: BIRADS 1 NEGATIVE RECOMMENDATION: Routine annual follow-up in 1 Year A letter with findings and recommendations will be mailed to the patient. Reading Location: [place] [id number]
== END | disposition home or self-care (01) ==
LOC: OPBI 14:28
PROVIDERS: PCP Family Medicine; Referring Provider Obstetrics & Gynecology; Visit Provider Obstetrics & Gynecology
DX: Z12.31 Encounter for screening mammogram for malignant neoplasm of breast (principal)
CPT/HCPCS: 77063; 77067

== ENCOUNTER → 2025-05-21 | Outpatient (CLI) | payer OTHER, SELFPAY ==
[2025-05-21 13:34] LABS: AST(SGOT) 32 U/L (<=31); Alanine Aminotransfer ALT/SGPT 42 U/L (<=34); Albumin, Serum 4.1 g/dL (3.5-5.0); Alkaline Phosphatase 77 U/L (35-104); Anion Gap 10 (5-15); BUN 16 mg/dL (4-19); BUN/Creat Ratio 25.0 RATIO (10-20); Calcium,Total 9.9 mg/dL (7.6-11.0); Carbon Dioxide 23.0 mmol/L (21.0-32.0); Chloride 105 mmol/L (98-108); Cholesterol 232 mg/dL (<=200); Globulin 3.3 g/dL (2.2-4.2); Glucose 99 mg/dL (70-99); Low Density Lipoprotein Calc. 163 mg/dL; Potassium 4.3 mmol/L (3.3-5.1); Triglycerides 150 mg/dL; Very Low Density Lipoprotein 30 mg/dL (5-40); Vitamin D,25 Hydroxy 25.1 ng/mL (30-100); cholesterol:hdl ratio screen 5.87
== END | disposition home or self-care (01) ==
LOC: MTLAB 09:40
PROVIDERS: PCP Family Medicine; Referring Provider Family Medicine; Visit Provider Family Medicine
DX: E78.5 Hyperlipidemia, unspecified (principal)
CPT/HCPCS: 36415; 80053; 80061; 82306

== ENCOUNTER → 2025-06-22 | Outpatient (CLI) | payer OTHER, SELFPAY ==
--- NOTE | 2025-06-22 14:47 | CT_ITS ---
PROCEDURE: LIMITED CHEST CT CARDIAC ONLY 06/22/2025 REASON FOR EXAM: HIGH CHOLESTEROL TECHNIQUE: Procedure Code: [id number] Modality: CT Procedure: LIMITED CHEST CT CARDIAC ONLY CONTRAST: None One or more dose reduction techniques were used (e.g., Automated exposure control, adjustment of the mA and/or kV according to patient size, use of iterative reconstruction technique). RADIATION DOSE SUMMARY: CTDlvol: 12.19 mGy DLP: 195.04 mGycm COMPARISON: None FINDINGS: Minimal calcification of the LAD. The lungs are clear. CT/Limited Chest CT Cardiac Only IMPRESSION: Minimal calcification of the distal portion of the LAD. Reading Location: [facility]
--- NOTE | 2025-06-22 16:03 | CA.SCORE ---
Calcium Scoring Date of Study:: 06/22/25 Indications Indications: HLD Coronary Calcium Scoring: High-resolution Computed Tomographic imaging of the chest was performed on [06/22/25 ], with particular attention paid to the coronary arteries. Images from the examination were analyzed for the presence and extent of coronary artery calcification , using coronary calcium quantification software. The patient tolerated the procedure well and there were no complications. The results of the coronary calcification analysis are provided below. Findings Coronary Artery Left Main (LM): 0 Left Anterior Descending (LAD): 0 Left Circumflex (LCX): 0 Right Coronary Artery (RCA): 0 Total Agatston Score: 0 Percentile Rankin% Calcium Scoring Interpretation: Different methods to categorize the overall amount of coronary plaque. Overall amount CAC SIS Visual of coronary plaque P1 Mild -100 <2 1-2 vessels with mild amount of plaque P2 Moderate 101-300 3-4 1-2 vessels with moderate amount, 3 vessels with mild amount of plaque P3 Severe 301-999 5-7 3 vessels with moderate amount, 1 vessel with severe amount of plaque P4 Extensive >1000 >8 2-3 vessels with severe amount of plaque Conclusion: No atherosclerotic plaquing noted.
== END | disposition home or self-care (01) ==
LOC: CT 14:43
PROVIDERS: PCP Family Medicine; Referring Provider Family Medicine; Visit Provider Family Medicine
DX: E78.00 Pure hypercholesterolemia, unspecified (principal); E78.1 Pure hyperglyceridemia
CPT/HCPCS: 75571; 76380